=== PATIENT | male | born 1970 | race Caucasian/White ===

== ENCOUNTER → 2018-07-27 10:56 | Outpatient (CLI) | payer OTHER, SELFPAY ==
--- NOTE | 2018-07-27 10:59 | RAD_ITS ---
STUDY: X-RAY CHEST REASON FOR EXAM: Male, 48 years old. Sarcoidosis. TECHNIQUE: PA and lateral views of the chest. COMPARISON: June 03, 2017 FINDINGS: There is no new focal consolidation. Normal size heart. Stable mediastinum and kerry. Normal visualized pulmonary arteries. Normal visualized aortic arch and descending thoracic aorta. Normal visualized thoracic spine. Normal visualized ribs, clavicles, and shoulders. There is no demonstrated abnormality of the visualized soft tissue structures of the upper abdomen. RAD/Chest PA and Lateral IMPRESSION: No acute cardiopulmonary process. Electronically Signed: Amelia Camarillo MD at 20:52 EST Tel , Service support ,
== END ==
PROVIDERS: Family Provider Family Medicine; PCP Family Medicine; Referring Provider Family Medicine; Visit Provider Family Medicine
DX: D86.9 Sarcoidosis, unspecified (principal)
CPT/HCPCS: 71046

== ENCOUNTER → 2018-07-31 12:35 | Outpatient (CLI) | payer OTHER, SELFPAY ==
--- NOTE | 2018-08-01 08:24 | PFTCOMP ---
COMPLETE PULMONARY FUNCTION TEST INTERPRETATION Brief HPI: Patient is a 48 year old male, currently under the care of Dr. York, who presents to [facility] for complete pulmonary function tests secondary to diagnosis of sarcoidosis. Respiratory therapist reports good effort and reproducible results. Interpretation: Forced expiration spirometry shows no large airways obstructive ventilatory defect with an FEV1 of 96% predicted. There is no significant bronchodilator response by strict ATS criteria. Spirograms are of good quality and plateau normally. The respiratory flow volume loop shows a normal pattern. Lung volumes by body plethysmography show a normal total lung capacity at 6.63 L, 93% predicted. All other lung volumes are within normal limits. Diffusion capacity by carbon monoxide is normal at 96% predicted. The airway resistance is normal. Compared to previous pulmonary function tests from 03/04/2012, there has been no significant change in spirometry, but lung volumes are not available for comparison. Impression: These pulmonary function tests are within normal limits and there does not appear to be significant change in spirometry compared to 2012.
== END ==
PROVIDERS: Family Provider Family Medicine; PCP Family Medicine; Referring Provider Family Medicine; Visit Provider Family Medicine
DX: D86.9 Sarcoidosis, unspecified (principal)
CPT/HCPCS: 94060; 94726; 94729

== ENCOUNTER → 2018-08-31 11:54 | Outpatient (CLI) | payer OTHER, SELFPAY ==
[2018-08-13 15:06] VITALS: BMI 29.9
--- NOTE | 2018-08-31 18:23 | STRESSREP ---
Stress Test Report Exercise stress test. 48-year-old male with a history of chest pain. Stress protocol: Resting EKG demonstrates normal sinus rhythm with a rate of 66 bpm normal intervals are noted resting blood pressure 128/84 mmHg. The patient exercised according to regular Steven protocol for total duration of 11 minutes completing 2 minutes into stage IV of the Steven protocol. The maximum heart rate attained was 162 bpm which was 93% of maximum predicted heart rate the maximum workload was 13.4 metabolic equivalents. At rest there were no ST or T wave changes noted suggest ischemia peak exercise upsloping ST changes were only were noted with normally the criteria for ischemia. No clinical angina was noted. The test was terminated due to leg fatigue. Resting blood pressure 128/84 with a peak blood pressure 170/90. Conclusion: Exercise stress test with no EKG criteria for ischemia at a high workload. No clinical angina noted. No arrhythmias noted.
== END ==
PROVIDERS: Family Provider Family Medicine; PCP Family Medicine; Referring Provider Family Medicine; Visit Provider Family Medicine
DX: R07.89 Other chest pain (principal)
CPT/HCPCS: 93017

== ENCOUNTER → 2018-09-03 13:22 | Outpatient (CLI) | payer OTHER, SELFPAY ==
[2018-08-13 15:06] VITALS: BMI 29.9
[2018-09-03 14:15] LABS: Erythrocyte Sedimentation Rate < 1 mm/hr (0-15)
[2018-09-03 14:55] LABS: AST(SGOT) 18 U/L (15-37); Alanine Aminotransfer ALT/SGPT 39 U/L (16-61); Albumin, Serum 4.3 g/dL (3.2-5.0); Alkaline Phosphatase 70 U/L (45-117); Bilirubin, Direct 0.12 mg/dL (0.00-0.30); Calcium,Total 8.9 mg/dL (8.5-10.1); Globulin 2.6 g/dL (2.2-4.2); Protein, Total 6.9 g/dL (6.4-8.2)
[2018-09-05 13:03] LABS: Angiotensin Convert Enzyme 43 U/L (14-82)
== END ==
PROVIDERS: Family Provider Family Medicine; PCP Family Medicine; Referring Provider Internal Medicine Pulmonary Disease; Visit Provider Internal Medicine Pulmonary Disease
DX: D86.9 Sarcoidosis, unspecified (principal)
CPT/HCPCS: 36415; 80076; 82164; 82310; 85652

== ENCOUNTER 2019-03-24 07:34 | Day surgery (SDC) | payer OTHER, SELFPAY ==
[2019-02-23 08:48] VITALS: BMI 29.9
--- NOTE | 2019-02-23 08:54 | HP_ITS ---
Intake Vital Signs 02/23/19 Body Mass Index (BMI) 29.9 02/23/19 Height 6 ft 02/23/19 Weight: 226 lb 02/23/19 Body Mass Index (BMI) 30.6 02/23/19 Blood Pressure 106/75 02/23/19 Blood Pressure Location Rt brachial 02/23/19 Respiratory Rate 14 02/23/19 Pulse Rate 81 02/23/19 Pulse Source Monitor 02/23/19 Temperature 98.2 F 02/23/19 Pulse Ox 97 02/23/19 Oxygen Delivery Method room air Intake Visit Reasons: C-Scope Consult Positive occult stool blood test Medical Territory Manager Required: No Is patient in pain?: No Allergies Penicillins Allergy (Verified 02/23/19 08:47) Unknown Medications escitalopram 10 mg tablet 10 mg PO DAILY 08/13/18 [History Confirmed 02/23/19] inhaler,assist devices,access MISCELLANEOUS 02/23/19 [History Confirmed 02/23/19] [facility] Medical History Asthma (Acute) Sleep apnea (Acute) Depression (Acute) Difficulty balancing (Acute) Sarcoidosis (Acute) Knee pain (Acute) Chest pain (Acute) Migraines (Acute) Fatigue (Acute) SOB (shortness of breath) (Acute) Fever (Acute) Lung disease (Acute) Surgical History History of biopsy (Acute) Family History Father Asthma Diabetes Heart disease Hypertension Other Cancer Social History (Updated 02/23/19 @ 09:00 by Anurag Lyman MD) Smoking Status: Never smoker alcohol intake: current alcohol intake frequency: a few times a week Alcohol type: hard liquor substance use type: does not use caffeine: Yes frequency: does not exercise HPI HPI HPI: NAHED STEVENS, is a 49 M who presents to the office today for HPI HPI Surgical H&P: Yes HPI: NAHED STEVENS, is a 49 M who presents to the office today for evaluation of heme positive stools. Patient has not noticed any black tarry stools nor has he noticed any blood in his stools. Patient has been complaining of increasing chest pains. And difficulty breathing which she states really is not uncommon for him. However the symptoms have increased in nature similar to when he was diagnosed with sarcoidosis in the past. His symptoms have been increasing over the last 6 months. Since my initial meeting with him he has seen Dr. Munoz and has been put on to inhalers and is feeling much better. And we are not going to get him scheduled for his colonoscopy. ROS General General: Yes fatigue; no weight change, appetite, colon cancer, breast cancer or weakness HEENT HEENT: No difficulty swallowing, eye injury, eye surgery, swollen glands or hoarseness Endo Endocrine: No thyroid disease, diabetes mellitus, thyroid cancer, Hair loss, heat intolerance or cold intolerance Skin Skin: No rash or changing moles Musc Musculoskeletal: Yes back problems; no arthritis, rheumatoid arthritis, gout or joint pain Cardio Cardiovascular: No murmur, pacemaker, heart disease, atrial fibrillation, high blood pressure, heart attack, heart stent, palpitations, shortness of breat with exertion or chest pain Psych Psychiatric: Yes depression; no anxiety or hearing voices Resp Respiratory: Yes shortness of breath, Yes sleep apnea, Yes cough, No COPD, Yes asthma, No emphysema, No wheezing Gastro Gastrointestinal: No abdominal pain, No nausea or vomiting, No diarrhea, No constipation, No blood in stool, No acid reflux, No hemorrhoids, No ulcers, No gallbladder problem, No black,tarry stools Yuri Hematologic: No blood thinners, No blood disorders, No bleeding, No anemia, No blood clots Neuro Neurologic: No system reviewed and no additional complaints, except as docu, No as per HPI, No abnormal walking, No abnormal hearing, No abnormal movements, No abnormal speech, No behavioral changes, No burning sensations, No confusion, No seizure-like activity, No unsteadiness, No dizziness, No localized weakness, No frequent falls, No headache(s), No lack of coordination, No loss of vision, No memory loss, No numbness, No other visual disturbances, No radiating pain, No restless legs, No sensory deficit, No fainting, No tingling, No tremor(s), No weakness, No other Exam Const General: no acute distress, well developed, well hydrated Orientation: oriented to person, oriented to place, oriented to time [facility] Head: normocephalic, atraumatic Ears: external ears normal Mouth: moist mucous membranes Eyes Sclera: sclerae normal Pupils: normal by confrontation Neck Neck: no lymphadenopathy noted Neck mass: No Thyroid: thyroid normal, symmetrical Chest Chest palpation & inspection: normal inspection of the chest Resp Effort & Inspection: normal respiratory effort Auscultation: clear to auscultation bilaterally Percussion: percussion normal Cardio Rate: regular rate Rhythm: regular rhythm Heart Sounds: no murmurs GI Palpation: soft, no hepatosplenomegaly, no masses, nontender Rectal Exam: other Other: Rectal exam deferred. Extrem General: normal to inspection, no clubbing, cyanosis or edema Assessment & Plan Problems 1. Heme + stool R19.5 Plan I have discussed the above with the patient. I have offered the patient colonoscopy for evaluation. I have explained the risks/benefits of the procedure and described the procedure. I have discussed the risks with the patient, including but not limited to: infection, bleeding, perforation of the GI tract requiring emergency surgery, inability to complete the procedure, injury to any internal organs, complications of anesthesia, etc. - the patient understands and agrees to proceed. I have answered all the patient's questions to the patient's satisfaction and the patient has no further questions. The patient has been given instructions for the colon cleansing preparation. Coding Level of Care Code Off vis,est,level 3 Diagnoses Heme + stool R19.5 02/23/19 0900 <Electronically signed by Anurga flores MD> Date _ Anurag Lyman MD I have re-examined the patient. There are no clinical changes since date of exam.
--- NOTE | 2019-03-24 | COLBX_PTH ---
PATIENT: NAHED STEVENS LOC: EN U#:[id number] AGE/SX: 49/M ROOM: RE03/24/[address]: Dr. Anurag Lyman MD : 1970 BED: DIS: 03/24/2019 SPEC #: [id number] RECD: 03/24/19 13:34 STATUS: JENN CRISTINA #: [id number] HELENE: 03/24/19 00:[address]: Anurag Lyman DEPT: SURGICAL PATHOLOGY RECD BY: Paulino Lambert ENTERED: 03/24/19 13:34 SP TYPE: COLON BX OTHR DR: Dr. Sanjay York MD Tissues: Descending colon Procedures: Surgery Specimen Level IV HEADER OPERATION: Colonoscopy PRE-OP DIAGNOSIS: Heme-positive stools TISSUE SUBMITTED: Descending colon polyp MICROSCOPIC DIAGNOSIS Descending colon polyp, biopsy: Consistent with inflammatory polyp. SJ:ruth 03/25/19 MICROSCOPIC DESCRIPTION Slides are reviewed. GROSS DESCRIPTION Received in fixative is one container labeled with the patient's name and designated descending colon polyp. The specimen consists of a medina-pink polyp measuring 1 x 1 x 0.7 cm. The apparent base is inked. The specimen is bisected and submitted entirely in one cassette. / SJ:ruth 03/24/19 TC:5 CPT: 47850
[2019-03-24 07:48] VITALS: BP 133/100; PULSE 78; RESP 16; TEMP 36.4; O2SAT 98; BMI 28.8
[2019-03-24] MEDS: Lactated Ringers 1,000 ML 75 ML IV (08:08)
[2019-03-24 09:28] VITALS: BP 122/89; BP 133/100; PULSE 74; RESP 16; TEMP 36.1; O2SAT 96
[2019-03-24 09:30] VITALS: BP 110/93; BP 133/100; PULSE 75; RESP 16; O2SAT 95
[2019-03-24 09:35] VITALS: BP 128/100; BP 133/100; PULSE 73; RESP 16; O2SAT 97
[2019-03-24 09:40] VITALS: BP 128/91; BP 133/100; PULSE 66; RESP 16; O2SAT 98
[2019-03-24 09:55] VITALS: BP 133/100
--- NOTE | 2019-03-24 16:45 | OP.ENDO_ITS ---
03/25/2019 Black York [address] [place] [address] Re : Colonoscopy procedure for Javi Gifford Dear Dr. York This procedure was performed on Sunday, March 24, 2019. My impressions and recommendations are as follows: Impressions : - One 20 mm polyp in the descending colon, removed with a hot snare. Resected and retrieved. - The examination was otherwise normal. Recommendations : - Discharge patient to home. - Resume previous diet. - Continue present medications. - Await pathology results. - Repeat colonoscopy in 3 years for surveillance. - Return to my office in 1 week. My findings are described in the full procedure note, which is enclosed. If I can be of further assistance, please feel free to contact me at Doctor phone number(s): , Fax: [phone], Work: . Sincerely, MD Anurag Snyder MD 03/24/2019 9:28:43 AM This report has been signed electronically.
== END 2019-03-24 10:15 | disposition home or self-care (01) ==
LOC: EN 07:34 → AC 07:35
PROVIDERS: Family Provider Family Medicine; PCP Family Medicine; Referring Provider Family Medicine; Visit Provider Surgery
PROC: 0DJD8ZZ Inspection of Lower Intestinal Tract, Via Natural or Artificial Opening Endoscopic (ICD-10-PCS; CPT 45378; principal; 2019-03-24 08:40)
DX: D12.4 Benign neoplasm of descending colon (principal); R19.5 Other fecal abnormalities; D86.9 Sarcoidosis, unspecified; G25.81 Restless legs syndrome; R07.9 Chest pain, unspecified; J45.909 Unspecified asthma, uncomplicated; G47.30 Sleep apnea, unspecified; F32.9 Major depressive disorder, single episode, unspecified; Z88.0 Allergy status to penicillin; Z79.899 Other long term (current) drug therapy
CPT/HCPCS: 45385; 88305; J7120; J2405

== ENCOUNTER → 2019-11-30 10:40 | Outpatient (CLI) | payer OTHER, SELFPAY ==
[2019-09-13 07:46] VITALS: BMI 28.8
--- NOTE | 2019-11-30 10:53 | RAD_ITS ---
STUDY: X-RAY CHEST REASON FOR EXAM: Male, 49 years old. Chest pain. TECHNIQUE: PA and lateral views of the chest. COMPARISON: Comparison is made with prior study dated July 27, 2018. FINDINGS: The lungs are clear and expanded. Scattered calcified granulomas. There is no demonstrated pleural abnormality. Normal size heart. Normal mediastinum and kerry. Normal visualized pulmonary arteries. Normal visualized aortic arch and descending thoracic aorta. Normal visualized thoracic spine. Normal visualized ribs, clavicles, and shoulders. There is no demonstrated abnormality of the visualized soft tissue structures of the upper abdomen. RAD/Chest PA and Lateral IMPRESSION: Normal x-ray examination of the chest. Electronically Signed: Dylan Lobo, at 15:49 EDT , Service support ,
[2019-11-30 12:31] LABS: Erythrocyte Sedimentation Rate 4 mm/hr (0-15)
[2019-11-30 12:33] LABS: Absolute Lymphocyte Count 1.38 X10^3/uL (0.83-4.51); Basophil# 0.03 X10^3/uL; Basophil% 0.5 % (0-1); Eosinophil# 0.05 X10^3/uL; Eosinophils% 0.9 % (0-5); Hematocrit 46.5 % (40-54); Hemoglobin 15.6 g/dL (13.0-16.5); Lymphocyte # 1.38 X10^3/ul (4.0); Lymphocyte % 23.5 % (19-41); Mean Corp Hgb Conc 33.5 g/dL (32-36); Mean Corpuscular Hgb 28.3 pg (27.0-32.0); Mean Corpuscular Volume 84.4 fL (80-94); Mean Platelet Vol. 10.9 fl (6.2-12.0); Monocyte# 0.41 X10^3/uL; NRBC Flagged by Analyzer 0 % (0-5); Neutrophil # 3.96 X10^3/uL (2.7-7.7); Neutrophil % 67.6 % (47-70); Platelet Count 203 K/mm3 (150-450); RBC Distribution Width CV 12.4 % (11.6-14.6); Red Blood Count 5.51 M/mm3 (4.6-6.2); White Blood Count 5.9 K/mm3 (4.4-11.0)
[2019-11-30 12:53] LABS: Vitamin B12 491 pg/mL (211-911); Vitamin D,25 Hydroxy 28.1 ng/mL
[2019-11-30 13:03] LABS: ALB/GLOB Ratio 1.5 RATIO (0.9-2.4); AST(SGOT) 23 U/L (15-37); Alanine Aminotransfer ALT/SGPT 48 U/L (16-61); Alkaline Phosphatase 79 U/L (45-117); Anion Gap 9 (5-15); BUN 15 mg/dL (7-18); BUN/Creat Ratio 17.7 RATIO (10-20); Calcium,Total 8.9 mg/dL (8.5-10.1); Chloride 105 mmol/L (98-107); Creatinine, Serum 0.85 mg/dL (0.70-1.30); EST Glomerular Filtration Rate 103 mL/min (>60); Est Glom Filt Rate - Afr Amer 124 mL/min (>60); Globulin 2.6 g/dL (2.2-4.2); Glucose 95 mg/dL (74-106); Iron 101 ug/dL (65-175); Potassium 3.7 mmol/L (3.5-5.1); Protein, Total 6.6 g/dL (6.4-8.2); Sodium Level 138 mmol/L (136-145); Thyroid Stim Hormone (TSH) 1.28 uIU/mL (0.358-3.74)
== END ==
PROVIDERS: PCP Family Medicine; Referring Provider Family Medicine; Visit Provider Family Medicine
DX: R53.83 Other fatigue (principal); D86.9 Sarcoidosis, unspecified
CPT/HCPCS: 36415; 71046; 80053; 82306; 82607; 83540; 84403; 84443; 85025; 85652

== ENCOUNTER → 2020-02-23 15:06 | Outpatient (CLI) | payer OTHER, SELFPAY ==
[2019-09-13 07:46] VITALS: BMI 28.8
[2020-02-23 18:00] LABS: CRP 5.27 mg/L (0.0-3.0)
[2020-02-23 18:29] LABS: Erythrocyte Sedimentation Rate 1 mm/hr (0-15)
[2020-02-25 20:12] LABS: Angiotensin Convert Enzyme 31 U/L (14-82)
== END ==
PROVIDERS: Referring Provider Internal Medicine Pulmonary Disease; Visit Provider Internal Medicine Pulmonary Disease
DX: D86.9 Sarcoidosis, unspecified (principal)
CPT/HCPCS: 36415; 82164; 85652; 86140

== ENCOUNTER → 2020-03-30 | Outpatient (CLI) | payer OTHER, SELFPAY ==
[2019-09-13 07:46] VITALS: BMI 28.8
== END | disposition home or self-care (01) ==
PROVIDERS: Referring Provider Family Medicine; Visit Provider Family Medicine
DX: Z20.828 Contact with and (suspected) exposure to other viral communicable diseases (principal)
CPT/HCPCS: 87635; U0003

== ENCOUNTER → 2020-09-27 14:01 | Outpatient (CLI) | payer OTHER, SELFPAY ==
--- NOTE | 2020-09-27 14:04 | RAD_ITS ---
STUDY: X-RAY CHEST REASON FOR EXAM: Male, 50 years old. CHEST PAIN TECHNIQUE: PA and lateral views of the chest. COMPARISON: Comparison is made with prior study dated 11/30/2019. FINDINGS: The lungs are clear and expanded. Scattered calcified granulomas. There is no demonstrated pleural abnormality. Normal size heart. Normal mediastinum and kerry. Normal visualized pulmonary arteries. Normal visualized aortic arch and descending thoracic aorta. Normal visualized thoracic spine. Normal visualized ribs, clavicles, and shoulders. There is no demonstrated abnormality of the visualized soft tissue structures of the upper abdomen. RAD/Chest PA and Lateral IMPRESSION: Normal x-ray examination of the chest. Electronically Signed: Dylan Lobo MD at 15:18 EST , Service support ,
[2020-09-27 15:14] LABS: Erythrocyte Sedimentation Rate 1 mm/hr (0-20)
[2020-09-27 15:16] LABS: Absolute Lymphocyte Count 1.41 X10^3/uL (0.83-4.51); Absolute Neutrophil Count 4.3 X10^3/uL (2.0-7.7); Basophil# 0.03 X10^3/uL; Basophil% 0.5 % (0-1); Eosinophil# 0.05 X10^3/uL; Eosinophils% 0.8 % (0-5); Hematocrit 45.9 % (40-54); Hemoglobin 15.7 g/dL (13.0-16.5); Lymphocyte # 1.41 X10^3/ul (4.0); Lymphocyte % 22.4 % (19-41); Mean Corp Hgb Conc 34.2 g/dL (32-36); Mean Corpuscular Hgb 28.8 pg (27.0-32.0); Mean Corpuscular Volume 84.2 fL (80-94); Mean Platelet Vol. 11.1 fl (6.2-12.0); Monocyte# 0.46 X10^3/uL; Monocyte% 7.3 % (0-10); NRBC Flagged by Analyzer 0 % (0-5); Neutrophil % 68.4 % (47-70); Platelet Count 207 K/mm3 (150-450); RBC Distribution Width CV 12.2 % (11.6-14.6); RBC Distribution Width SD 36.7 fl (35.1-43.9); Red Blood Count 5.45 M/mm3 (4.6-6.2); White Blood Count 6.3 K/mm3 (4.4-11.0)
[2020-09-27 16:02] LABS: Vitamin B12 525 pg/mL (211-911)
[2020-09-27 16:15] LABS: ALB/GLOB Ratio 1.6 RATIO (0.9-2.4); AST(SGOT) 16 U/L (15-37); Alanine Aminotransfer ALT/SGPT 40 U/L (16-61); Albumin, Serum 4.1 g/dL (3.2-5.0); Alkaline Phosphatase 83 U/L (45-117); Anion Gap 8 (5-15); BUN 17 mg/dL (7-18); BUN/Creat Ratio 19.9 RATIO (10-20); Calcium,Total 8.9 mg/dL (8.5-10.1); Chloride 107 mmol/L (98-107); Creatinine, Serum 0.85 mg/dL (0.70-1.30); EST Glomerular Filtration Rate 101 mL/min (>60); Est Glom Filt Rate - Afr Amer 123 mL/min (>60); Globulin 2.5 g/dL (2.2-4.2); Glucose 111 mg/dL (74-106); Protein, Total 6.6 g/dL (6.4-8.2); Sodium Level 140 mmol/L (136-145); Thyroid Stim Hormone (TSH) 1.77 uIU/mL (0.358-3.74)
== END ==
PROVIDERS: PCP Family Medicine; Referring Provider Family Medicine; Visit Provider Family Medicine
DX: R07.9 Chest pain, unspecified (principal); R53.83 Other fatigue; D86.9 Sarcoidosis, unspecified
CPT/HCPCS: 36415; 71046; 80053; 82306; 82607; 84403; 84443; 85025; 85652

== ENCOUNTER → 2021-01-24 11:52 | Outpatient (CLI) | payer OTHER, SELFPAY ==
--- NOTE | 2021-01-24 11:55 | RAD_ITS ---
STUDY: X-RAY - RIGHT FOOT CLINICAL: Right foot/ankle pain. TECHNIQUE: 3 view(s) of the foot. COMPARISON: None. FINDINGS: There is a posterior calcaneal enthesophyte. Otherwise, unremarkable talus, calcaneus, and tarsal bones. Normal visualized subtalar, talonavicular, calcaneocuboid, tarsal and tarsometatarsal articulations. Normal metatarsi. Normal metatarsophalangeal joint of the great toe. Normal tibial and fibular sesamoid bones. Normal interphalangeal joint of the great toe. Normal phalanges of the great toe. Normal second through fifth metatarsophalangeal joints. Normal interphalangeal joints and phalanges of the lesser toes. The soft tissue structures are unremarkable. RAD/Foot min 3 Views IMPRESSION: Posterior calcaneal enthesophyte. Otherwise, unremarkable x-ray examination of the right foot. Electronically Signed: Donta Smith MD at 12:11 EDT Tel , Service support ,
--- NOTE | 2021-01-24 11:55 | RAD_ITS ---
STUDY: X-RAY - RIGHT ANKLE REASON FOR EXAM: Right foot and ankle pain. TECHNIQUE: 3 view(s) of the ankle. COMPARISON: None. FINDINGS: Normal visualized distal tibia and fibula. Normal medial and lateral malleoli. Normal tibiotalar articulation and ankle mortise. There is a posterior calcaneal enthesophyte. The visualized subtalar, talonavicular, calcaneocuboid and tarsal articulations are normal. The soft tissue structures are unremarkable. RAD/Ankle min 3 Views IMPRESSION: Posterior calcaneal enthesophyte. Otherwise, unremarkable x-ray examination of the right ankle. Electronically Signed: Donta Smith MD at 12:14 EDT Tel , Service support ,
== END ==
PROVIDERS: PCP Family Medicine; Referring Provider Family Medicine; Visit Provider Family Medicine
DX: M79.671 Pain in right foot (principal); M25.571 Pain in right ankle and joints of right foot
CPT/HCPCS: 73610; 73630

== ENCOUNTER 2021-10-29 13:12 | Outpatient (CLI) | payer OTHER, SELFPAY ==
[2021-10-29 15:37] LABS: CRP, High Sensitivity Cardiac 4.08 mg/L
[2021-10-29 15:39] LABS: Erythrocyte Sedimentation Rate 3 mm/hr (0-20)
[2021-10-31 18:48] LABS: Angiotensin Convert Enzyme 41 U/L (14-82)
== END 2021-10-29 23:59 | disposition home or self-care (01) ==
LOC: MTLAB 13:13
PROVIDERS: PCP Family Medicine; Referring Provider Internal Medicine Pulmonary Disease; Visit Provider Internal Medicine Pulmonary Disease
DX: D86.0 Sarcoidosis of lung (principal)
CPT/HCPCS: 36415; 82164; 85652; 86141

== ENCOUNTER 2021-11-05 15:35 | Outpatient (CLI) | payer OTHER, SELFPAY ==
--- NOTE | 2021-11-05 15:42 | CT_ITS ---
STUDY: CT CHEST WITHOUT CONTRAST REASON FOR EXAM: Male, 51 years old. SARCOIDOSIS OF LUNG RADIATION DOSAGE (If Supplied By Facility): CTDIvol = ( 19.23 ) mGy, DLP = ( 691.80 ) mGycm TECHNIQUE: Transaxial imaging was performed without the administration of intravenous contrast material. Individualized dose optimization techniques were used for this CT. COMPARISON: None. FINDINGS: The lungs are normal. There is no demonstrated pleural abnormality. Normal heart and pericardium. There are multiple small lymph nodes within the mediastinum, which are normal in size and morphology most compatible with reactive lymph hyperplasia. Normal hilar regions. Normal unenhanced pulmonary arteries. Normal aorta arch and descending thoracic aorta. There are mild degenerative changes of the thoracic spine. There is no demonstrated abnormality of the visualized upper abdomen. CT/Chest without Contrast IMPRESSION: Normal unenhanced CT Chest examination. Electronically Signed: Dylan Lobo MD at 9:56 EDT ,
== END 2021-11-05 23:59 | disposition home or self-care (01) ==
PROVIDERS: PCP Family Medicine; Referring Provider Internal Medicine Pulmonary Disease; Visit Provider Internal Medicine Pulmonary Disease
DX: D86.0 Sarcoidosis of lung (principal)
CPT/HCPCS: 71250

== ENCOUNTER 2021-11-06 07:44 | Inpatient (IN) | payer OTHER, SELFPAY ==
[2021-11-06] VITALS (15 sets, daily range): BP systolic 129–150; BP diastolic 77–101; PULSE 70–84; RESP 16–21; TEMP 36.3–36.8; O2SAT 95–98; BMI 32.7; BMI 31.1
--- NOTE | 2021-11-06 07:49 | EKG12_ITS ---
Test Reason : CP Blood Pressure : / mmHG Vent. Rate : 083 BPM Atrial Rate : 083 BPM P-R Int : 156 ms QRS Dur : 092 ms QT Int : 378 ms P-R-T Axes : 042 -13 012 degrees QTc Int : 444 ms Normal sinus rhythm Normal ECG Confirmed by ASHLEE DAS MD ([id number]), manager editorial EMILY MALLOY ([id number]) on 11/07/2021 2:15:05 PM Referred By: JONI Confirmed By:ASHLEE DAS MD
--- NOTE | 2021-11-06 07:56 | EDS_ITS ---
HPI History of Present Illness Chief Complaint: Chest Pain Narrative Narrative: 51-year-old male presenting with chest pain. He states that he does have chronic chest pain due to sarcoidosis and scar tissue in the center of his chest. He has been seeing his primary care physician because he has been having issues with this recently. He had a CAT scan done yesterday of his chest without contrast which was not read yet. Patient reports that this morning after drinking orange juice he started to have a burning/pressure type pain in the chest that radiated into the left upper extremity. He states he felt lightheaded when this occurred. He was not diaphoretic. He is not short of breath. No history of DVT/PE, recent bedrest or immobilization, history of cancer in him, exogenous hormones, calf pain or swelling, no recent surgery. Patient denies history of cardiac disease. He has not had fever, chills, cough. He does not have nausea or vomiting. He reports that he was given 2 nitroglycerin via EMS and his chest pain improved from an 8 to a 5 and now it is improved all the way. He states he still feels achiness in his left arm. [facility] Medical History Asthma Chest pain Depression Difficulty balancing Fatigue Fever Knee pain Lung disease Migraines Sarcoidosis Sleep apnea SOB (shortness of breath) Home Medications escitalopram oxalate 10 mg tablet 20 mg PO DAILY 08/13/18 [History Last Taken Unknown] fluticasone furoate 1 puff IH DAILY 03/22/19 [History Last Taken Unknown] albuterol 90 mcg INHALATION Q4H PRN PRN 11/06/21 [History Last Taken Unknown] bupropion HCl 150 mg PO DAILY 11/06/21 [History Last Taken Unknown] Allergy/AdvReac Type Severity Reaction Status Date / Time Penicillins Allergy Unknown Verified 11/06/21 07:49 Family History Father Asthma Diabetes Heart disease Hypertension Other Cancer Surgical History History of biopsy History of colonoscopy (~03/24/19) Social History Smoking Status: Never smoker alcohol intake: current alcohol intake frequency: a few times a week Alcohol type: hard liquor substance use type: does not use caffeine: Yes frequency: does not exercise ROS ROS ED Constitutional Constitutional ED: Denies chills, fever(s) or sweats Eyes Eyes: Reports blurry vision bilateral (During episode of lightheadedness) ENT ENT ED: Denies rhinorrhea or sore throat Cardiovascular Cardiovascular: Reports as per HPI Respiratory/Chest Respiratory/Chest: Denies cough, dyspnea or dyspnea on exertion Gastrointestinal Gastrointestinal: Denies abdominal pain, nausea or vomiting Genitourinary Genitourinary ED: Denies dysuria or hematuria Musculoskeletal Musculoskeletal: Denies myalgias Integumentary Denies abscess, Abrasions or rash Neurologic Neurologic: Reports headache(s) and other Details: Reports headache after having nitroglycerin ; Denies paresthesias or weakness Psychiatric Psychiatric: Denies anxiety or depression EXAM Physical Exam Const Vital Signs: 11/06/21 07:45 11/06/21 07:51 11/06/21 08:45 Temperature 97.5 F L Temperature Source Oral Pulse Rate 84 76 Respiratory Rate 16 19 H Respiratory Effort Blood Pressure 130/77 H 132/91 H Blood Pressure Mean 94 104 Pulse Ox 96 95 Oxygen Delivery Method Room Air Room Air Room Air 11/06/21 08:52 11/06/21 09:00 11/06/21 10:00 Temperature Temperature Source Pulse Rate 77 72 Respiratory Rate 16 21 H Respiratory Effort Normal Non-Labored Blood Pressure 138/88 H 140/94 H Blood Pressure Mean 104 109 Pulse Ox 97 97 Oxygen Delivery Method Room Air Room Air Positive well nourished General Appearance ED: NAD; Negative for pallor HEENT Reports moist mucous membranes normocephalic Eyes PERRL and EOMs intact bilaterally General Eye ED: Negative for pale conjunctiva or scleral icterus Neck no lymphadenopathy and supple Chest Wall inspection of chest normal Resp normal respiratory effort and clear to auscultation bilaterally Cardio regular rate and regular rhythm GI normal to inspection, nondistended, normoactive bowel sounds Back/Spine no CVA tenderness Neuro oriented x3 Sensorium / Orientation: awake and alert Psych mental status grossly normal Skin General Skin Exam: Negative for jaundice or pallor Heart Score History: Slightly/Non-Suspicious ECG: Normal Age: >45 - <65 years Risk Factors: No Risk Factors Troponin: </= Normal Limit Score: 1 MDM MDM MDM Narrative Medical decision making narrative: Patient presenting with chest pain with radiation to the left upper extremity earlier prior to arrival. He states this lasted about an hour. He felt lightheaded and had blurry vision while he was lightheaded. He states that after EMS gave him nitroglycerin his chest pain improved and now is down to 0. He has no other associated symptoms. Heart score of 1 pretesting. EKG on my interpretation shows normal sinus rhythm with ventricular rate of 83 bpm without sign of ischemic change. Patient PERC negat mariana. Patient had a CAT scan of his chest done yesterday without contrast which I will have read as stat. I do not suspect PE. Chest x-ray on my interpretation shows no acute cardiopulmonary process and radiologist agree. CT was read of the chest and is negative for acute findings. I did review the patient's previous lab work and it looks like he did have abnormal cholesterol levels last year. He states he is not on medication for this. This does add some risk. Patient's initial heart score was 3 and the delta troponin is 45 therefore he rules and and will need to be hospitalized. Patient was discussed with Dr. White and he agreed. CBC and BMP otherwise unremarkable. Patient received aspirin via EMS prior to arrival. Impression: 1. Chest pain Lab Data Attestation: I reviewed the patient's lab results. Labs: Laboratory Results - last 24 hr 11/06/21 11/06/21 11/06/21 07:30 07:30 09:35 WBC 6.2 RBC 5.53 Hgb 16.0 Hct 46.2 MCV 83.5 MCH 28.9 MCHC 34.6 RDW Std Deviation 37.2 RDW Coeff of Jose 12.2 Plt Count 169 MPV 10.7 Immature Gran % (Auto) 0.600 Neut % (Auto) 68.3 Lymph % (Auto) 21.9 Candler % (Auto) 8.2 Eos % (Auto) 0.8 Baso % (Auto) 0.2 Absolute Neuts (auto) 4.2 Absolute Lymphs (auto) 1.36 Nucleated RBC % 0 Sodium 139 Potassium 4.1 Chloride 108 H Carbon Dioxide 27.0 Anion Gap 4 L BUN 17 Creatinine 0.77 Estim Creat Clear Calc 123.60 Est GFR (MDRD) Af Amer 137 Est GFR (MDRD) Non-Af 113 BUN/Creatinine Ratio 22.0 H Glucose 116 H Calcium 8.7 Troponin I High Sens 3 45 Radiography Diagnostic Testing: Clinical Impression(s) from Imaging Studies Chest X-Ray 11/06/21 08:11 IMPRESSION: Normal x-ray examination of the chest. Electronically Signed: Dylan Lobo MD at 9:01 EDT Reading Location ID and State: [facility] / [place] , Service support , Discharge Plan Triage Chief Complaint: Chest Pain ED Provider: Charles Hughes Dx/Rx/DC Orders Prescriptions: No Action escitalopram oxalate [Lexapro] 10 mg tablet 20 mg PO DAILY RF: 0 fluticasone furoate 100 MCG blister with device 1 puff IH DAILY RF: 0 bupropion HCl 150 mg Tablet Sustained-Release 12 Hr 150 mg PO DAILY RF: 0 albuterol 90 mcg/actuation Aerosol 90 mcg INHALATION Q4H PRN PRN (Reason: sob) RF: 0 Primary Care Provider: Black York
[2021-11-06 08:02] LABS: Absolute Lymphocyte Count 1.36 X10^3/uL (0.83-4.51); Absolute Neutrophil Count 4.2 X10^3/uL (2.0-7.7); Basophil# 0.01 X10^3/uL; Basophil% 0.2 % (0-1); Eosinophil# 0.05 X10^3/uL; Eosinophils% 0.8 % (0-5); Hematocrit 46.2 % (40-54); Lymphocyte # 1.36 X10^3/ul (0.83-4.51); Lymphocyte % 21.9 % (19-41); Mean Corp Hgb Conc 34.6 g/dL (32-36); Mean Corpuscular Hgb 28.9 pg (27.0-32.0); Mean Corpuscular Volume 83.5 fL (80-94); Mean Platelet Vol. 10.7 fl (6.2-12.0); Monocyte# 0.51 X10^3/uL; Monocyte% 8.2 % (0-10); NRBC Flagged by Analyzer 0 % (0-5); Neutrophil # 4.24 X10^3/uL (2.7-7.7); Neutrophil % 68.3 % (47-70); Platelet Count 169 K/mm3 (150-450); RBC Distribution Width CV 12.2 % (11.6-14.6); RBC Distribution Width SD 37.2 fl (35.1-43.9); Red Blood Count 5.53 M/mm3 (4.6-6.2); White Blood Count 6.2 K/mm3 (4.4-11.0)
--- NOTE | 2021-11-06 08:11 | RAD_ITS ---
STUDY: X-RAY CHEST REASON FOR EXAM: Male, 51 years old. Chest pain TECHNIQUE: Single AP portable view of the chest. COMPARISON: Comparison is made with prior examination dated 09/27/2020. FINDINGS: EKG electrodes are seen. The lungs are clear and expanded. There is no demonstrated pleural abnormality. Normal size heart. Normal mediastinum and kerry. Normal visualized pulmonary arteries. Normal visualized aortic arch and descending thoracic aorta. Normal visualized thoracic spine. Normal visualized ribs, clavicles, and shoulders. There is no demonstrated abnormality of the visualized soft tissue structures of the upper abdomen. RAD/Chest 1 View (Portable) IMPRESSION: Normal x-ray examination of the chest. Electronically Signed: Dylan Lobo MD at 9:01 EDT ,
[2021-11-06 08:20] LABS: Anion Gap 4 (5-15); BUN 17 mg/dL (7-18); Calcium,Total 8.7 mg/dL (8.5-10.1); Chloride 108 mmol/L (98-107); Creatinine, Serum 0.77 mg/dL (0.70-1.30); EST Glomerular Filtration Rate 113 mL/min (>60); Est Glom Filt Rate - Afr Amer 137 mL/min (>60); Glucose 116 mg/dL (74-106); Potassium 4.1 mmol/L (3.5-5.1); Sodium Level 139 mmol/L (136-145); Troponin-I HS (w/2H Reflex) 3 pg/mL (3.0-78.0)
[2021-11-06 09:59] LABS: Reflex Troponin-HS? (from REC) Y
[2021-11-06 10:22] LABS: Troponin-I HS 45 pg/mL (3.0-78.0)
--- NOTE | 2021-11-06 11:36 | NURSING ---
DR CLEMENTE FOR DR WILBURN
--- NOTE | 2021-11-06 11:44 | NURSING ---
GLENDYU OBS HEIDI CLEMENTE
--- NOTE | 2021-11-06 12:23 | CM.ED ---
RN CM Assessment Introduced role of RN CM to patient.? Patient is alert, oriented and able?to participate in RN CM Assessment. ?Care providers, pharmacy, and demographics verified. Admit Dx: OBS for CP Re-Admit: No Barriers/Issues: None PCP: Sanjay York Specialists: Tomi Hayes Preferred Pharmacy: [facility] Insurance: [employer] Rx Benefit: Yes? LNOK: Carlota Gifford LW/HPOA: None, AD information provided with [employer] rack card. Aware can complete as an inpatient and outpatient. Living Arrangements:? Lives with in a 2SH, bedroom currently on upper pa as gnd level of home getting remodeled. No steps to enter home. ADL?s: Independent with ambulation and ADLs. 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 Transportation: Both patient and drive DME: None HHC: None SNF: None Goal: Home and no needs anticipated at this time. DC PLAN: Home and no anticipated needs identified at his time. F/u for any potential anticoagulation needs. KEMAR Holliday
--- NOTE | 2021-11-06 12:56 | ECHOCS_ITS ---
Reason For Study: CHEST PAINS Procedure This was a 2D Doppler, Color Flow transthoracic echocardiogram. The study was technically difficult. Contrast injection was performed. Exam performed portable in patient room. Left Ventricle Normal LV size. Mild concentric left ventricular hypertrophy. Left ventricular systolic function is normal. The estimated ejection fraction is 65 %. No evidence for diastolic dysfunction. No regional wall motion abnormalities noted. Right Ventricle Normal RV size. Normal systolic function. Atria Normal left atrium. Normal right atrium. No doppler evidence for ASD. Mitral Valve There is no mitral annular calcification. Normal mitral valve. Trivial mitral valve insufficiency. Tricuspid Valve Normal tricuspid valve. Trivial tricuspid valve insufficiency. Right ventricular systolic pressure estimated to be 34 mmHg. Aortic Valve Trisinus/trileaflet aortic valve. Normal aortic valve. Pulmonic Valve The pulmonic valve is not well visualized. Great Vessels Normal sized aortic root. Pericardium/Pleural No pericardial effusion. Medication Diluted definity 2ml given slow IV push to enhance endocardial definition. MMode/2D Measurements & Calculations LVIDd: 3.5 cm IVSd: 1.3 cm Ao root diam: 3.5 cm LVIDs: 2.6 cm LVPWd: 1.4 cm RVDd: 2.8 cm FS: 27.3 % LAV(MOD-bp): 41.8 ml LVAd ap4: 37.0 cm2 SV(MOD-sp4): 77.1 ml LAV(MOD-bp) Indexed: 18.5 ml/m2 LVLd ap4: 9.1 cm LAV(MOD-sp2): 41.9 ml EDV(MOD-sp4): 117.8 ml LAV(MOD-sp4): 37.4 ml EDV(sp4-el): 127.1 ml LVAs ap4: 18.8 cm2 LVLs ap4: 7.5 cm ESV(MOD-sp4): 40.8 ml ESV(sp4-el): 40.1 ml EF(MOD-sp4): 65.4 % EF(sp4-el): 68.5 % SV(sp4-el): 87.0 ml LA A4 area: 16.1 cm2 LA dimension(2D): 3.2 cm RA A4 area: 11.0 cm2 Doppler Measurements & Calculations MV E max alexander: 99.5 cm/sec Lat Peak E' Alexander: 10.6 cm/sec Med Peak E' Alexander: 8.9 cm/sec MV A max alexander: 85.8 cm/sec E/E' lat: 9.3 E/E' med: 11.2 MV E/A: 1.2 Ao V2 max: 172.3 cm/sec LV V1 max: 139.2 cm/sec PA V2 max: 97.3 cm/sec Ao max P.9 mmHg LV V1 max P.8 mmHg TR max alexander: 280.2 cm/sec TR max P.4 mmHg ECHO/Echo Complete W/ Contrast Interpretation Summary The study was technically difficult. Contrast injection was performed. Left ventricular systolic function is normal. The estimated ejection fraction is 65 %. Mild concentric left ventricular hypertrophy. Trivial mitral valve insufficiency. Trivial tricuspid valve insufficiency. Right ventricular systolic pressure estimated to be 34 mmHg. No evidence for diastolic dysfunction. Ordering Physician: Lolly^Delfin^^^ Referring Physician: Sanjay York MD Performed By: Radha Arnold RCS
[2021-11-06 14:17] LABS: Troponin-I HS 201 pg/mL (3.0-78.0)
--- NOTE | 2021-11-06 15:40 | CASEMGMT ---
According to the [employer] website, the following are in-network tertiary facilities: [facility], [place], [facility], [facility], [facility], and . Elkin DOMINGUEZ CM
--- NOTE | 2021-11-06 15:53 | HP.PCM.HOS_ITS ---
Documented by User: Néstor MOCTEZUMA 11/06/21 16:09 HPI - General General Date of Admission: 11/06/21 Date of Service: 11/06/21 Chief Complaint: Chest pain HPI Narrative NAHED STEVENS is a 51-year-old male who presents to the ED at [facility] on 11/06/2021 with a chief complaint of chest pain. Patient states that this morning he awoke and felt fine after eating breakfast he reports that he s tarted feeling a burning sensation with intense chest pressure that began in the midsternal region and radiated to the back and left arm. Patient does suffer from chronic chest pain, but reports that the sensation he felt this morning was much different. Patient also endorses shortness of breath, but reports that this is chronic for him due to his history of sarcoidosis. Patient reports that the pain has now resolved after administration of aspirin and nitroglycerin, but does report that the chest pain was about a 8 out of 10 when it was at its worse. Vital signs in the ED are stable and patient is currently satting 98% on room air. BP is elevated at 150/100. CBC and BMP are unremarkable. High- sensitivity troponin are 3, 45 and 201 respectively. EKG obtained in the ED was unremarkable for any ST or T wave abnormalities. Chest x-ray did not demonstrate any acute cardiopulmonary process. Patient will be admitted for evaluation management of NSTEMI. [facility] Medical History Asthma Chest pain Depression Difficulty balancing Fatigue Fever Knee pain Lung disease Migraines Sarcoidosis Sleep apnea SOB (shortness of breath) Home Medications escitalopram oxalate 10 mg tablet 20 mg PO DAILY 08/13/18 [History Last Taken Unknown] fluticasone furoate 1 puff IH DAILY 03/22/19 [History Last Taken Unknown] albuterol 90 mcg INHALATION Q4H PRN PRN 11/06/21 [History Last Taken Unknown] bupropion HCl 150 mg PO DAILY 11/06/21 [History Last Taken Unknown] Allergy/AdvReac Type Severity Reaction Status Date / Time Penicillins Allergy Unknown Verified 11/06/21 07:49 Family History (Updated 11/06/21 @ 16:01 by Néstor MOCTEZUMA) Father Asthma Diabetes Heart disease Hypertension Mother No problems noted. Other Cancer Surgical History History of biopsy History of colonoscopy (~03/24/19) Social History Smoking Status: Never smoker alcohol intake: current alcohol intake frequency: a few times a week Alcohol type: hard liquor substance use type: does not use caffeine: Yes frequency: does not exercise ROS Review of Systems ROS Unobtainable: Denies due to encephalopathy, due to endotracheal tube, due to mental condition, due to mental status or other Constitutional Constitutional: Reports weakness; Denies anorexia, change in weight, chills, fatigue, fever(s), malaise, night sweats or other Eyes Eyes: Denies blurry vision, change in eye color, change in vision, discharge from eye(s), double vision, erythema, eye pain, loss of vision or other ENT HEENT: Denies abnormal hearing, dysphagia, ear pain, epistaxis, headache(s), hearing loss, nasal congestion, nasal discharge, post nasal drip, sinus pressure, sore throat or other Cardiovascular Cardiovascular: Reports chest pain, dyspnea on exertion, lightheadedness and palpitations; Denies claudication, edema, orthopnea, paroxysmal nocturnal dyspnea, rapid heart rate, syncope or other Respiratory/Chest Respiratory/Chest: Reports dyspnea, shortness of breath at rest and shortness of breath with exertion; Denies cough, excessive phlegm production, hemoptysis, productive cough, wheezing or other Gastrointestinal Gastrointestinal: Denies abdominal pain, coffee ground emesis, constipation, diarrhea, dyspepsia, hematemesis, hematochezia, loose stools, melena, nausea, vomiting or other Genitourinary Genitourinary: Denies burning urination, difficulty urinating, dysuria, hematuria, nocturia, urinary frequency, urinary hesitancy, urinary incontinence, urinary urgency or other Musculoskeletal Musculoskeletal: Denies arthralgias, back pain, joint pain, joint stiffness, joint swelling, myalgias, neck pain or other Neurologic Neurologic: Denies abnormal gait, abnormal speech, confusion, disequilibrium, dizziness, focal weakness, headache(s), numbness, paresthesias, seizure-like activity, seizures, syncope, tingling, tremor(s) or other Psychiatric Psychiatric: Denies anxiety, depression, homicidal ideation, suicidal ideation or other Endocrine Endocrinology: Denies change in body appearance, cold intolerance, excessive sweating, heat intolerance, polydipsia, polyuria or other Hematologic/Lymphatic Hematologic/Lymphatic: Denies anemia, easy bleeding, easy bruising, l ymphadenopathy or other Allergic/Immunologic Allergic/Immunologic: Denies rhinitis, hives, eczemia, asthma or other Vital Signs Vital Signs Vital Signs: 11/06/21 07:45 11/06/21 07:51 11/06/21 08:45 Temperature 97.5 F L Temperature Source Oral Pulse Rate 84 76 Respiratory Rate 16 19 H Respiratory Effort Respiratory Depth Respiratory Pattern Blood Pressure 130/77 H 132/91 H Blood Pressure Mean 94 104 Blood Pressure Source Blood Pressure Position Blood Pressure Location Pulse Ox 96 95 Oxygen Delivery Method Room Air Room Air Room Air 11/06/21 08:52 11/06/21 09:00 11/06/21 10:00 Temperature Temperature Source Pulse Rate 77 72 Respiratory Rate 16 21 H Respiratory Effort Normal Non-Labored Respiratory Depth Respiratory Pattern Blood Pressure 138/88 H 140/94 H Blood Pressure Mean 104 109 Blood Pressure Source Blood Pressure Position Blood Pressure Location Pulse Ox 97 97 Oxygen Delivery Method Room Air Room Air 11/06/21 11:45 11/06/21 12:43 11/06/21 13:05 Temperature 97.3 F L 97.8 F Temperature Source Temporal Temporal Pulse Rate 75 76 76 Respiratory Rate 16 16 18 Respiratory Effort Respiratory Depth Respiratory Pattern Blood Pressure 143/92 H 137/90 H 150/100 H Blood Pressure Mean 109 105 116 Blood Pressure Source Monitor Blood Pressure Position Semi-Fowlers Blood Pressure Location Right Arm Pulse Ox 96 98 98 Oxygen Delivery Method Room Air Room Air Nasal Cannula 11/06/21 13:15 11/06/21 14:59 Temperature Temperature Source Pulse Rate 72 Respiratory Rate Respiratory Effort Normal Non-Labored Respiratory Depth Normal Respiratory Pattern Normal Blood Pressure Blood Pressure Mean Blood Pressure Source Blood Pressure Position Blood Pressure Location Pulse Ox Oxygen Delivery Method Room Air Weight Weight: 229 lb 8.019 oz Body Mass Index (BMI) 31.1 Physical Exam Const alert and oriented x3 General Appearance: cooperative HEENT normocephalic, head/scalp atraumatic and hearing grossly normal bilaterally Eyes PERRL, EOMs intact bilaterally and conjunctivae normal Neck no lymphadenopathy, supple and no JVD Resp normal respiratory effort, no retractions, no use of accessory muscles and clear to auscultation bilaterally Cardio regular rate, regular rhythm and no JVD GI normal to inspection, nondistended, normoactive bowel sounds Extremity normal to inspection Skin no rashes or lesions noted Neuro CN's II-XII intact bilaterally Psych affect normal Results Lab / Micro Data Result Diagrams: 11/06/21 07:30 11/06/21 07:30 Labs: Laboratory Results - last 24 hr 11/06/21 07:30: WBC 6.2, RBC 5.53, Hgb 16.0, Hct 46.2, MCV 83.5, MCH 28.9, MCHC 34.6, RDW Std Deviation 37.2, RDW Coeff of Jose 12.2, Plt Count 169, MPV 10.7, Immature Gran % (Auto) 0.600, Neut % (Auto) 68.3, Lymph % (Auto) 21.9, Dillon % (Auto) 8.2, Eos % (Auto) 0.8, Baso % (Auto) 0.2, Absolute Neuts (auto) 4.2, Absolute Lymphs (auto) 1.36, Nucleated RBC % 0 11/06/21 07:30: Sodium 139, Potassium 4.1, Chloride 108 H, Carbon Dioxide 27.0, Anion Gap 4 L, BUN 17, Creatinine 0.77, Estim Creat Clear Calc 123.60, Est GFR (MDRD) Af Amer 137, Est GFR (MDRD) Non-Af 113, BUN/Creatinine Ratio 22.0 H, Glucose 116 H, Calcium 8.7, Troponin I High Sens 3 11/06/21 09:35: Troponin I High Sens 45 11/06/21 13:42: Troponin I High Sens 201 H* Radiology Impression Chest X-Ray 11/06/21 08:11 IMPRESSION: Normal x-ray examination of the chest. Electronically Signed: Dylan Lobo MD at 9:01 EDT , Assessment & Plan Assessment/Plan (1) Chest pain: (2) NSTEMI (non-ST elevated myocardial infarction): PLAN: Patient is a 51-year-old male who was admitted to [facility] on 11/06/2021 for evaluation management of chest pain with elevated cardiac enzymes. 1) NSTEMI Cardiac enzymes elevated at 3, 45 and 201 respectively. EKG and chest x-ray are unremarkable. Plan; admit to PCU for cardiac monitoring, obtain echocardiogram, cardiac cath in a.m., cardiology consulted, initiate aspirin, statin and beta-b locker. 2) depression/anxiety Continue bupropion and Lexapro. DVT prophylaxis - hold chemoprophylaxis for upcoming cardiac catheterization. Patient seen by Néstor Sheridan PA-C, under the supervision of Dr. Ambrocio. Time spent on patient care: 25 minutes. Documented by User: Dr. Delfin Ambrocio, 11/06/21 18:50 HPI - General General Date of Admission: 11/06/21 [facility] Medical History Asthma Chest pain Depression Difficulty balancing Fatigue Fever Knee pain Lung disease Migraines Sarcoidosis Sleep apnea SOB (shortness of breath) Home Medications escitalopram oxalate 10 mg tablet 20 mg PO DAILY 08/13/18 [History Last Taken Unknown] fluticasone furoate 1 puff IH DAILY 03/22/19 [History Last Taken Unknown] albuterol 90 mcg INHALATION Q4H PRN PRN 11/06/21 [History Last Taken Unknown] bupropion HCl 150 mg PO DAILY 11/06/21 [History Last Taken Unknown] Allergy/AdvReac Type Severity Reaction Status Date / Time Penicillins Allergy Unknown Verified 11/06/21 07:49 Family History (Updated 11/06/21 @ 16:01 by Néstor MOCTEZUMA) Father Asthma Diabetes Heart disease Hypertension Mother No problems noted. Other Cancer Surgical History History of biopsy History of colonoscopy (~03/24/19) Social History Smoking Status: Never smoker alcohol intake: current alcohol intake frequency: a few times a week Alcohol type: hard liquor substance use type: does not use caffeine: Yes frequency: does not exercise Results Lab / Micro Data Result Diagrams: 11/06/21 07:30 11/06/21 07:30 Charges/Coding Addendum Addendum: Patient was seen and examined independently of Néstor Sheridan, he came to the ER today for evaluation of chest discomfort which occurred early this morning while at rest, he states the discomfort was like a burning sensation that radiated from his mid precordial area to the left side of his chest, up into his left shoulder and down his left arm. 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 Patient was given 2 nitroglycerin which she says took away most of the discomfort. Patient states that he has chronic chest pain due to a past history of sarcoidosis but this dis comfort that he had today was unlike his previous chest discomfort. On examination he appeared in good health and spirits. Vital signs as documented. Skin warm and dry and without overt rashes. Neck without JVD, neck was supple, trachea midline, thyroid was normal. Lungs clear bilaterally, normal air movement was noted. Heart exam notable for regular rhythm, normal sounds and absence of murmurs, rubs or gallops. Abdomen unremarkable and without evidence of organomegaly, masses, or abdominal aortic enlargement. Bowel sounds are present, abdomen is not distended. Extremities nonedematous, no cyanosis was noted, no clubbing was noted. Neuro: Cranial nerves II through XII are grossly intact, no focal motor deficits were noted, sensation to light touch and pinprick intact, motor exam 5/5 throughout. Psych: Patient is alert and oriented x3, he does not appear anxious or depressed, he does not appear agitated. Work-up in the emergency room included an EKG which showed a normal sinus rhythm without evidence of ischemic changes, patient had 2 troponins performed in the emergency room both of which were within the normal range although the second troponin was more elevated than the first troponin, patient CBC and chemistry profile was unremarkable, patient's chest x-ray was normal. Impression: #1 chest pain-etiology unclear initially-since then it appears that he has had a non-STEMI, patient was initially placed into observation status on MedSurg, at the time of this dictation, a third troponin had been obtained which did show elevation in indicated that the patient had a non-STEMI. I contacted cardiology, cardiology will set the patient up for cardiac catheterization zana colbert. Patient will have an echocardiogram performed, he was placed on a statin, a baby aspirin daily, and beta-joe. #2 chronic depression-patient will continue on his antidepressants #3 sarcoidosis-patient was placed on aerosol treatments-he uses a steroid inhaler at home, I placed him on Pulmicort while hospitalized. I have reviewed Néstor Sheridan's history and physical including his medical assessment and plan of care and with the above additions endorse it. Total clinical time spent by myself addressing the patient's issues, reviewing the patient's medical data, and collaborating with the patient's care team: 45 minutes Visit Charges Inpatient E&M: 50059 Init Hosp L3
[2021-11-06] MEDS: Metoprolol Tartrate 25 MG Tablet 12.5 MG PO ×2 (16:01→22:50)
--- NOTE | 2021-11-06 18:29 | PCM.CONS.C ---
Assessment & Plan Assessment/Plan (1) NSTEMI (non-ST elevated myocardial infarction): PLAN: The patient has abnormal cardiac enzymes/high-sensitivity troponin I levels concerning for an acute non-ST segment elevation HI. It is unclear at this time whether this is a type I event from underlying CAD versus a type II event being brought out from a non-CAD process. At the moment the patient is being monitored. He has been placed on medical management. He has undergone noninvasive evaluation. He has been recommended for further invasive evaluation with diagnostic cardiac catheterization. The cardiac catheterization procedure and risk were discussed with the patient. He was agreeable to this approach. (2) Chest pain: PLAN: The patient has a longstanding history of chest discomfort. He has undergone noninvasive valuation as noted in the past. At the present time based upon his ongoing clinical course and objective findings he has now been recommended for further invasive cardiovascular evaluation. This includes diagnostic cardiac catheterization. Depending upon the findings, if it does not appear the patient has angiographically significant CAD, then he may need to be considered for further non-CAD and/or noncardiac evaluation of his chest discomfort. This could include further evaluation for thromboembolic disease such as pulmonary emboli with laboratory studies and/or chest CT with IV contrast as well as additional nonvascular evaluation of chest discomfort. (3) Sarcoidosis: PLAN: The patient has a history of sarcoidosis. He states he was treated for this in the past. He has been undergoing reevaluation for this noninvasively with the aforementioned radiologic studies. He will need to continue evaluation care per his tile classifier for this concern. Addt'l Comments The patient's case was discussed and reviewed with the patient, the [facility] emergency department staff, and Dr. Ambrocio. This note was generated using a voice recognition system and there may be incorrect words, spelling or punctuation that were not noted when reviewing the office note prior to saving. HPI Consult Data Date of Consult: 11/06/21 HPI Narrative HPI Narrative: NAHED STEVENS, is a 51 year old white male who presents for cardiovascular consultation based upon concerns of chest pain and abnormal high-sensitivity troponin I levels superimposed upon a history of underlying pulmonary disease with reactive airway disease and sarcoidosis. The patient states that he has undergone evaluation in the past for concerning chest discomfort from a noninvasive standpoint which has been unremarkable. He notes that more recently he has been experiencing chest discomfort again which he describes as a burning sensation that radiates across his chest and down his left upper extremity. Today this discomfort became much more prominent. He presented to the emergency department for further evaluation. He was treated with nitroglycerin sublingual which she states relieved his burning chest discomfort sensation. His initial cardiac enzymes were negative and his initial ECG demonstrated no acute ECG changes. However a subsequent troponin I level was noted to have increased. Thus he was recommended for further evaluation as an inpatient. His subsequent troponin I levels continue to increase into the positive range. He denies any ongoing symptoms of acute orthopnea or PND or peripheral pitting edema. He denies any ongoing palpitations or episodes of near syncope/syncope. He states he has been recently undergoing evaluation by his tile classifier for recurrence of his sarcoidosis which was treated greater than 10 years ago with corticosteroid therapy. This evaluation included a noncontrast chest CT scan performed yesterday which was reported by radiology as being a normal unenhanced CT chest examination. He had a chest x-ray performed today which was also reported by radiology as being a normal x-ray examination of the chest. He underwent a transthoracic echocardiogram today. The results are noted below. He has been recommended based upon his symptoms and his abnormal troponin I levels for further evaluation of his coronary status with diagnostic cardiac catheterization. [facility] Medical History Asthma Chest pain Depression Difficulty balancing Fatigue Fever Knee pain Lung disease Migraines Sarcoidosis Sleep apnea SOB (shortness of breath) Home Medications escitalopram oxalate 10 mg tablet 20 mg PO DAILY 08/13/18 [History Last Taken Unknown] fluticasone furoate 1 puff IH DAILY 03/22/19 [History Last Taken Unknown] albuterol 90 mcg INHALATION Q4H PRN PRN 11/06/21 [History Last Taken Unknown] bupropion HCl 150 mg PO DAILY 11/06/21 [History Last Taken Unknown] Allergy/AdvReac Type Severity Reaction Status Date / Time Penicillins Allergy Unknown Verified 11/06/21 07:49 Family History (Updated 11/06/21 @ 16:01 by Néstor MOCTEZUMA) Father Asthma Diabetes Heart disease Hypertension Mother No problems noted. Other Cancer Surgical History History of biopsy History of colonoscopy (~03/24/19) Social History Smoking Status: Never smoker alcohol intake: current alcohol intake frequency: a few times a week Alcohol type: hard liquor substance use type: does not use caffeine: Yes frequency: does not exercise ROS Constitutional Constitutional: Reports as per HPI Eyes Eyes: Reports as per HPI ENT HEENT: Reports as per HPI Cardiovascular Cardiovascular: Reports chest pain and chest pain at rest Respiratory/Chest Respiratory/Chest: Reports as per HPI Gastrointestinal Gastrointestinal: Reports as per HPI Genitourinary Genitourinary: Reports as per HPI Musculoskeletal Musculoskeletal: Reports as per HPI Integumentary Integumentary: Reports as per HPI Neurologic Neurologic: Reports as per HPI Psychiatric Psychiatric: Reports as per HPI Physical Exam Const alert, oriented x3 and no apparent distress Orientation / Consciousness: awake HEENT normocephalic, head/scalp atraumatic and hearing grossly normal bilaterally Eyes PERRL, EOMs intact bilaterally and conjunctivae normal Neck full ROM, supple and no JVD Resp clear to auscultation bilaterally Cardio regular rate, regular rhythm, S1 normal heart sound and S2 normal heart sound GI normal to inspection, nondistended, normoactive bowel sounds Extremity no pedal edema Skin no rashes or lesions noted Neuro oriented x3, moves all extremities, no focal motor deficits and no sensory deficits noted Psych mental status grossly normal Risk Stratification Risk Stratification Applicable: Yes Age >/= 65: No >/= 3 CAD Risk Factors (HTN, HLD, DM, family hx of CAD, or current smoker): No Aspirin Use in the Past 7 Days: No Severe Angina (>/= episodes in 24 hours): Yes EKG ST Changes >/= 0.5mm: No Positive Cardiac Marker: Yes FAVIO Risk Stratification Score: 2 FAVIO % Risk: 8% Risk Procedure Criteria Type of Procedure Procedure Type: Elective Elective Risks - COVID COVID Risk Discussion: The surgeon/proceduralist and patient have discussed in detail the risk of exposure to and/or potential harm posed by the COVID-19 virus with having a surgery/procedure at this time versus the risk of delaying the surgery/procedure. It is not possible to know either the risk of delaying the surgery or procedure or chance of getting an infection with perfect accuracy, but a joint decision was made between the patient and the surgeon/proceduralist to proceed at this time with the scheduled surgery/procedure as indicated on the consent form. Objective Data Vital Signs: Vital Signs Temp Pulse Resp BP Pulse Ox 98.2 F 78 16 138/92 H 95 11/06/21 18:00 11/06/21 18:00 11/06/21 18:00 11/06/21 18:00 11/06/21 18:00 Oxygen Delivery Method Room Air Weight: 229 lb 8.019 oz Body Mass Index (BMI) 31.1 Intake & Output: Intake and Output for Last 24 Hours 11/04/21 11/05/21 11/06/21 23:59 23:59 23:59 Intake Total 650 / 650 Balance 650 / 650 Lab / Micro Data Result Diagrams: 11/06/21 07:30 11/06/21 07:30 Labs: Laboratory Results - last 24 hr 11/06/21 07:30: WBC 6.2, RBC 5.53, Hgb 16.0, Hct 46.2, MCV 83.5, MCH 28.9, MCHC 34.6, RDW Std Deviation 37.2, RDW Coeff of Jose 12.2, Plt Count 169, MPV 10.7, Immature Gran % (Auto) 0.600, Neut % (Auto) 68.3, Lymph % (Auto) 21.9, [place] % (Auto) 8.2, Eos % (Auto) 0.8, Baso % (Auto) 0.2, Absolute Neuts (auto) 4.2, Absolute Lymphs (auto) 1.36, Nucleated RBC % 0 11/06/21 07:30: Sodium 139, Potassium 4.1, Chloride 108 H, Carbon Dioxide 27.0, Anion Gap 4 L, BUN 17, Creatinine 0.77, Estim Creat Clear Calc 123.60, Est GFR (MDRD) Af Amer 137, Est GFR (MDRD) Non-Af 113, BUN/Creatinine Ratio 22.0 H, Glucose 116 H, Calcium 8.7, Troponin I High Sens 3 11/06/21 09:35: Troponin I High Sens 45 11/06/21 13:42: Troponin I High Sens 201 H* Cardiology Labs/Tests 11/06/21 07:30: WBC 6.2, RBC 5.53, Hgb 16.0, Hct 46.2, MCV 83.5, MCH 28.9, MCHC 34.6, Plt Count 169, MPV 10.7, Immature Gran % (Auto) 0.600, Neut % (Auto) 68.3, Lymph % (Auto) 21.9, [place] % (Auto) 8.2, Eos % (Auto) 0.8, Baso % (Auto) 0.2, Absolute Neuts (auto) 4.2, Nucleated RBC % 0 11/06/21 07:30: Sodium 139, Potassium 4.1, Chloride 108 H, Carbon Dioxide 27.0, Anion Gap 4 L, BUN 17, Creatinine 0.77, Est GFR (MDRD) Af Amer 137, Est GFR (MDRD) Non-Af 113, BUN/Creatinine Ratio 22.0 H, Glucose 116 H, Calcium 8.7 Rhythm: Sinus rhythm EKG: Sinus rhythm ECHO: As noted below Stress Test: 08-31-2018 Stress Test Report Exercise stress test. 48-year-old male with a history of chest pain. Stress protocol: Resting EKG demonstrates normal sinus rhythm with a rate of 66 bpm normal intervals are noted resting blood pressure 128/84 mmHg. The patient exercised according to regular Steven protocol for total duration of 11 minutes completing 2 minutes into stage IV of the Steven protocol. The maximum heart rate attained was 162 bpm which was 93% of maximum predicted heart rate the maximum workload was 13.4 metabolic equivalents. At rest there were no ST or T wave changes noted suggest ischemia peak exercise upsloping ST changes were only were noted with normally the criteria for ischemia. No clinical angina was noted. The test was terminated due to leg fatigue. Resting blood pressure 128/84 with a peak blood pressure 170/90. Conclusion: Exercise stress test with no EKG criteria for ischemia at a high workload. No clinical angina noted. No arrhythmias noted. Radiography Diagnostic Testing: Radiology Impression Chest X-Ray 11/06/21 08:11 IMPRESSION: Normal x-ray examination of the chest. Electronically Signed: Dylan Lobo MD at 9:01 EDT , Echocardiogram 11/06/21 12:56 Interpretation Summary The study was technically difficult. Contrast injection was performed. Left ventricular systolic function is normal. The estimated ejection fraction is 65 %. Mild concentric left ventricular hypertrophy. Trivial mitral valve insufficiency. Trivial tricuspid valve insufficiency. Right ventricular systolic pressure estimated to be 34 mmHg. No evidence for diastolic dysfunction. Ordering Physician: Lolly^Delfin^^^DO Referring Physician: Sanjay York MD Performed By: Radha Arnold RCS
[2021-11-06] MEDS: Budesonide Respules 0.5 MG/2 ML AMPUL.NEB. INHALATION (19:18)
[2021-11-06] MEDS: Atorvastatin Calcium 80 MG Tablet PO (21:24)
[2021-11-06] MEDS: 0.9% Saline Lock 10 ML Syringe IV (21:25)
[2021-11-07] VITALS (19 sets, daily range): BP systolic 113–139; BP diastolic 79–99; PULSE 62–91; RESP 16–20; TEMP 36.4–36.6; O2SAT 94–98
--- NOTE | 2021-11-07 05:55 | EKG12_ITS ---
Test Reason : POSTPCI Blood Pressure : / mmHG Vent. Rate : 066 BPM Atrial Rate : 066 BPM P-R Int : 178 ms QRS Dur : 100 ms QT Int : 402 ms P-R-T Axes : 049 -12 017 degrees QTc Int : 421 ms Normal sinus rhythm Normal ECG When compared with ECG of 07-NOV-2021 05:17, MANUAL COMPARISON REQUIRED, DATA IS UNCONFIRMED Confirmed by PIPPA GARRIDO, ASHLEE ([id number]), content editor DUKE ALVAREZ ([id number]) on 11/15/2021 1:04:11 PM Referred By: CORIE Confirmed By:ASHLEE DAS MD
[2021-11-07] MEDS: Metoprolol Tartrate 25 MG Tablet 12.5 MG PO ×2 (06:38→21:34)
[2021-11-07] MEDS: Aspirin 81 MG TAB.CHEW PO (06:39)
--- NOTE | 2021-11-07 07:37 | NURSING ---
Gave verbal report to Richi RN in construction or leak gang laborer
--- NOTE | 2021-11-07 09:45 | EKG12_ITS ---
Test Reason : PRE HEART CATH Blood Pressure : / mmHG Vent. Rate : 069 BPM Atrial Rate : 069 BPM P-R Int : 172 ms QRS Dur : 100 ms QT Int : 406 ms P-R-T Axes : 033 -14 005 degrees QTc Int : 435 ms Normal sinus rhythm Normal ECG Confirmed by GEOVANI GARRIDO, MELLISSA ([id number]), editor in chief newspaper DUKE ALVAREZ ([id number]) on 11/15/2021 1:32:12 PM Referred By: Pernell Mahan Confirmed By:MELLISSA OLIVO MD
--- NOTE | 2021-11-07 09:48 | PCIREPORT_ITS ---
PCI Cardiac Cath Report PCI Report: Procedure performed; 1. Successful PCI of the culprit subtotal 99% stenosis of the mid LAD With predilatation using 2 x 12 mm balloon, followed by placement of drug- eluting stent 3 x 22 mm SARA/O[place] Postdilated using 3.5 x 50 mm NC Emerge balloon With reduction of stenosis from 99% to 0/no residual stenosis and improvement of FAVIO flow from FAVIO II to FAVIO-3 flow. 2. PTCA of a small sidebranch D2/second diagonal using 2 x 15 mm emerge balloon. Consent; Risk and benefit of procedure explained in detail to the patient elected to proceed informed consent obtained. Preprocedure diagnosis; Patient is a 51-year-old seen and evaluated by his primary loader semiconductor dies Dr. White as he had symptoms of chest pain with a clinical diagnosis of CAD/non- ST elevation AK had abnormally high sensitivity troponin levels. Patient known to have a pulmonary disease with reactive airway disease and sarcoidosis. Cardiac cath findings discussed his left main is normal angiographically bifurcating into LAD and left circumflex The culprit lesion is mid LAD which is subtotal 99 involving a small side branch less than 2 mm which is tight 90% of the sidebranch with a FAVIO flow in the LAD. The left circumflex is moderate to large in size with a diffuse proximal to mid circumflex atherosclerosis of around 50 to 60% RCA is large dominant with the 370-75% stenosis involving the distal RCA which bifurcates into posterolateral and RPDA. Had mild anteroapical hypokinesia with mildly reduced LV systolic function on the ventriculogram. Based on the clinical presentation we will proceed with a PCI of the culprit lesion which is the mid LAD with the plan of angioplasty of the sidebranch. Interventional equipment used; 1. 6 [place] 3.5 EBU guide catheter 2. 0.014 BMW universal straight 190 cm guidewire. 3. 0.014 run-through extra floppy 180 cm straight wire. 4. 2 x 12 mm emerge MR balloon 5. 3 x 22 mm drug-eluting stent/Orsiro [place] Medication used in the Drawer Hardware Worker Patient initially was given 3000 units of heparin through the right radial sheath by Dr. White and we gave him 7000 units of heparin IV ACT level was checked. Patient was given Brilinta 180 mg in the Drawer Hardware Worker as well as an aspirin Symptoms of chest pain is mild Procedure in detail; Under fluoroscopic guidance we will proceed with the 6 [place] 3.5 EBU guide advanced ascending aorta cannulated the left main without difficulty Then we used a run-through wire across the lesion in the subtotal LAD predilated the lesion followed by placement of drug-eluting stent and postdilated using 3.5 x 50 mm NC balloon and achieved an excellent result with no evidence of proximal or distal dissection noted worsening of the sidebranch which is a small branch then we proceed with the BMW wire across the lesion and through the struts of the stents and then dilate the lesion at the ostium of the sidebranch which is a small less than 2 mm. Following this all catheters removed hemostasis maintained with placement of TR band to the right radial artery arteriotomy site with no complication in the Drawer Hardware Worker Recommendation plan 1. Patient to continue on DAPT Brilinta/aspirin for 1 year and to continue to follow-up with his primary loader semiconductor dies Dr. White 2. He had lesion in the distal RCA and this can be set up as an elective PCI of the distal RCA 2 - 3 weeks 3. Had a diffuse intermediate lesion in the left circumflex and this can be evaluated further with IFR in the Drawer Hardware Worker. Pernell Mahan MD,FAC,[facility]
[2021-11-07] MEDS: Escitalopram Oxalate 20 MG Tablet PO (09:49)
[2021-11-07] MEDS: buPROPion (SR) 150 MG Tablet.SA PO (09:49)
[2021-11-07] MEDS: TICAGRELOR 90 MG TABLET PO (09:50)
[2021-11-07] MEDS: Lisinopril 10 MG Tablet PO (09:50)
--- NOTE | 2021-11-07 09:59 | PCM.PN.CARD ---
Subjective Subjective The patient is status post diagnostic cardiac catheterization and subsequent LAD PCI and diagonal branch PTCA. He appears without any acute adverse cardiovascular events at this time. Objective Data Vital Signs: Vital Signs Temp Pulse Resp BP Pulse Ox 97.9 F 65 18 123/88 H 94 11/07/21 06:34 11/07/21 09:45 11/07/21 09:45 11/07/21 09:45 11/07/21 09:45 Oxygen Delivery Method Room Air Weight: 229 lb 8.019 oz Body Mass Index (BMI) 31.1 Intake & Output: Intake and Output for Last 24 Hours 11/05/21 11/06/21 11/07/21 23:59 23:59 23:59 Intake Total 800 / 800 Balance 800 / 800 Lab / Micro Data Result Diagrams: 11/06/21 07:30 11/06/21 07:30 Labs: Laboratory Results - last 24 hr 11/06/21 09:35: Troponin I High Sens 45 11/06/21 13:42: Troponin I High Sens 201 H* Cardiology Labs/Tests Rhythm: Sinus rhythm EKG: Sinus rhythm Radiography Diagnostic Testing: Radiology Impression Echocardiogram 11/06/21 12:56 Interpretation Summary The study was technically difficult. Contrast injection was performed. Left ventricular systolic function is normal. The estimated ejection fraction is 65 %. Mild concentric left ventricular hypertrophy. Trivial mitral valve insufficiency. Trivial tricuspid valve insufficiency. Right ventricular systolic pressure estimated to be 34 mmHg. No evidence for diastolic dysfunction. Ordering Physician: Lolly^Delfin^^^ Referring Physician: Sanjay York MD Performed By: Radha Arnold RCS Physical Exam Const alert, oriented x3 and no apparent distress Orientation / Consciousness: awake HEENT normocephalic, head/scalp atraumatic and hearing grossly normal bilaterally Eyes PERRL, EOMs intact bilaterally and conjunctivae normal Neck full ROM, supple and no JVD Resp clear to auscultation bilaterally Cardio regular rate, regular rhythm, S1 normal heart sound and S2 normal heart sound GI normal to inspection, nondistended, normoactive bowel sounds Extremity no pedal edema Peripheral Pulses: Yes radial pulses present right (No obvious bruit: No obvious hematoma) 2+ Skin no rashes or lesions noted Neuro oriented x3, moves all extremities, no focal motor deficits and no sensory deficits noted Psych mental status grossly normal Assessment & Plan Assessment/Plan (1) NSTEMI (non-ST elevated myocardial infarction): PLAN: The patient has abnormal cardiac enzymes/high-sensitivity troponin I levels concerning for an acute non-ST segment elevation [place]. The patient has undergone subsequent evaluation with diagnostic cardiac catheterization. He was noted to have angiographically significant appearing CAD of the LAD distribution as well as CAD involving the LCx and RCA distribution. The LAD distribution appeared to be the most angiographically significant and a culprit vessel. Thus he underwent subsequent LAD PTCA/SARA and diagonal branch PTCA. He will continue medical management. He will be considered for a staged cardiac intervention/percutaneous evaluation and care procedure of his LCx with consideration to FFR and his RCA with consideration to additional PTCA/SARA. (2) Chest pain: PLAN: The patient has a longstanding history of chest discomfort. It does appear he has underlying CAD. Thus at the present time he will continue medical therapy. (3) Sarcoidosis: PLAN: The patient has a history of sarcoidosis. He states he was treated for this in the past. He has been undergoing reevaluation for this noninvasively with the aforementioned radiologic studies. He will need to continue evaluation care per his assistant project engineer for this concern. Addt'l Comments The patient's case was discussed and reviewed with Dr. Ambrocio and Dr. Mahan of Interventional Cardiology. This note was generated using a voice recognition system and there may be incorrect words, spelling or punctuation that were not noted when reviewing the office note prior to saving.
[2021-11-07] MEDS: 0.9% Normal Saline 1,000 ML 75 ML IV ×2 (10:00→17:14)
--- NOTE | 2021-11-07 10:00 | EKG12_ITS ---
Test Reason : AM EKG Blood Pressure : / mmHG Vent. Rate : 072 BPM Atrial Rate : 072 BPM P-R Int : 168 ms QRS Dur : 100 ms QT Int : 400 ms P-R-T Axes : 044 -09 005 degrees QTc Int : 438 ms Normal sinus rhythm Normal ECG When compared with ECG of 07-NOV-2021 10:40, MANUAL COMPARISON REQUIRED, DATA IS UNCONFIRMED Confirmed by MAMTA GARRIDO, STEPHANIE ([id number]), videotape editor DUKE ALVAREZ ([id number]) on 11/16/2021 1:15:57 PM Referred By: DR CLEMENTE Confirmed By:SANDI OLEARY MD
--- NOTE | 2021-11-07 10:15 | CL.D_ITS ---
Patient Name: NAHED STEVENS Study Date: 11/07/2021 Performing: Mateo White MD Ht: 72 inches 183 cm : 1970 Wt: 229.6 lbs 104 kg Age: 51 Gender: male BSA: 2.26 PROCEDURE(S) PERFORMED [id number])LHC/COR/LV [id number])SARA W/WO PTCA, SINGLE CORONARY ARTERY IC02-([id number])PTCA, EACH ADD'L CORONARY ART, SAME MAJOR CLINICAL PROFILE AND INDICATIONS Indications: ACS <= 24 hrs Heart Failure: None Stress/Imaging Stress/Image Study Performed: No Angina Classification Anginal Classification w/in 2 Weeks: CCS IV CAD Presentations: Non-STEMI. Unstable angina. CONCLUSIONS Elevated Left Ventricular End Diastolic Pressure Segmented LV systolic dysfunction- Mild LVEF: by LV gram 55 % [place] Multivessel CAD RECOMMENDATIONS Risk factor modification Medical therapy Referred for immediate PCI DESCRIPTION OF PROCEDURE The patient arrived to the procedure lab. The risks and benefits of the procedure as well as a full d escription of our services here and current unavailability of surgical backup were fully explained to the patient and/or their significant other prior to the catheterization. The Timeout was completed, verifying the correct patient and procedure. The patient's procedural site was prepped and draped in the usual fashion. Local anesthetic was given subcutaneously to right radial region with Lidocaine 2% . Using a modified Seldinger technique, arterial access was obtained via the right radial artery, a 6 Fr sheath was inserted. Left Coronary Artery selective angiography was performed in multiple views u sing a 5 Fr. 4.0 [place] catheter. Right Coronary Artery selective angiography was then performed in mu ltiple views using a 5 Fr. 4.0 [place] catheter. Left Ventriculography was performed in TEJEDA projection using a 5 Fr. [place] catheter. LV to AO pullback pressures were then recorded.The arterial sheath was pulled and a TR Band was applied for hemostasis CORONARY ANGIOGRAPHY DOMINANCE: Right Dominant LEFT HEART ASSESSMENT Left Ventricular Ejection Fraction: by LV Gram 55 % Anterior Hypokinesis Elevated Left Ventricular End Diastolic Pressure LEFT MAIN: Angiographically normal LEFT ANTERIOR DESCENDING ARTERY: PROX LAD: Mild luminal irregularities MID LAD: 95 % Stenosis CIRCUMFLEX ARTERY: Mild luminal irregularities MID CIRC: diffuse: eccentric: 25 % Stenosis, 50 % Stenosis RIGHT CORONARY ARTERY: Mild luminal irregularities DISTAL RCA: 50 % Stenosis, eccentric: 85 % Stenosis AORTIC ROOT: Angiographically normal COMPLICATIONS No Complications PROCEDURE MEDICATIONS Versed 1 mg IV Fentanyl 50 mcg IV Versed 1 mg IV Fentanyl 50 mcg IV Oxygen: 2 L/min via nasal cannula Heparin given IA 11/07/2021 08:05:36 Heparin 5000 unit(s) IV 11/07/2021 08:29:52 Nitro 200 mcg IC 11/07/2021 08:53:59 Nitro 200 mcg IC 11/07/2021 08:53:59 Verapamil 2.5mg, Ntg 100mcgs, 3000 units of Heparin given IA 11/07/2021 08:05:36 SUMMARY OF HEMODYNAMIC DATA Time AIR REST ECG 07:40:48 AO 132/100 (115) SA 08:13:37 LV 118/-4, 17 08:23:22 LV 118/-4, 14 08:23:29 LV 127/-5, 19 08:24:32 LV 122/-9, 17 08:24:39 LVp 123/-8, 14 08:24:46 AOp 100/62 (80) 08:24:51 Signed By Mateo White MD On 11/07/2021 10:14:37 AM Signed By Mateo White MD On 11/07/2021 10:14:11 AM Mateo White MD
--- NOTE | 2021-11-07 10:51 | CRPH1.INST_ITS ---
General Education CAD and cardiac anatomy and function:: Patient communicates acknowledgment, Family communicates acknowledgment Explanation of diagnoses and procedures:: Patient communicates acknowledgment, Family communicates acknowledgment Sign/Symptoms of FL:: Patient communicates acknowledgment, Family communicates acknowledgment Antiplatelet therapy: Patient communicates acknowledgment, Family communicates acknowledgment Proper use of NTG-SL: Patient communicates acknowledgment, Family communicates acknowledgment Emergency procedures and activation of EMS: Patient communicates acknowledgment, Family communicates acknowledgment Compliance of all prescribed medications: Patient communicates acknowledgment, Family communicates acknowledgment Smoking Patient Nicotine/Smoking Risk Factors Are:: Never smoked Dyslipidemia Recommendations Include:: Lipid profile not available Dyslipidemia Response Code:: Patient communicates acknowledgment, Family communicates acknowledgment Overweight/Obesity Patient Overweight/Obesity Risk Factors Are:: Obesity - > or = 30 Recommendations Include:: Weight loss of 5-10%, Reduced calorie diet, Exercise 5-7 times/week Overweight/Obesity:: Patient communicates acknowledgment, Family communicates acknowledgment Hypertension Recommendations Include:: Maintain BP <130/85, Decrease/maintain normal body weight Hypertension:: Patient communicates acknowledgment, Family communicates acknowledgment Heart Disease Patient Heart Disease Risk Factors Are:: Family history of heart disease < 65 years old Recommendations Include:: Educated family members of their risk Heart Disease Response Code:: Patient communicates acknowledgment, Family communicates acknowledgment Sedentary Recommendations Include:: Aerobic exercise 5-7 times/week for 20-30 minutes continuously, Benefits of regular exercise, Discussed home walking program, Monitored Outpatient Cardiac Rehab Sedentary Response Code:: Patient communicates acknowledgment, Family com municates acknowledgment Stress Recommendations Include:: Identification of stressors, and assessment of coping skills, Stress management techniques Stress Response Code:: Patient communicates acknowledgment, Family communicates acknowledgment
--- NOTE | 2021-11-07 10:51 | CRPHASE1 ---
Patient Communication PHII Cardiac Rehab Discussed with Patient:: Yes Guide to Cardiac Rehab Given to Patient:: Yes Cardiac Rehab Facility Choice List Given to Patient:: Yes Choice Program [facility] PHII:: Communication Given to CR Manager Of Environmental Services:: Pernell Mahan Phase II Cardiac Rehab:: Yes Sessions:: 36 sessions - 3 days/wk, 12 weeks Cardiac Rehabilitation Info Cardiac Rehabilitation Program Information: Cardiac Rehabilitation is important for patients like you who are recovering from a heart problem. Cardiac rehabilitation programs are recognized as integral to the continued care of the patient with coronary heart disease. The cardiac rehabilitation program is designed to optimize a patient's physical, psychological, and social functioning. Health patient care secretary work in cardiac rehabilitation programs and assist you with getting the treatments you need to get stronger and healthier - like exercise, healthy eating habits, and medications. Cardiac rehabilitation has been show to help people with heart problems live longer and have better life enjoyment than people who do not go to cardiac rehabilitation. Please contact the Cardiac Rehabilitation Program at [facility] at in two weeks if you have not heard from them.
--- NOTE | 2021-11-07 13:06 | PN.HOSP_ITS ---
Documented by User: Néstor [email or web address] 11/07/21 13:18 Subjective Subjective Patient is a 51-year-old male comfortably resting in bed after cardiac catheterization, alert and orient x3. Patient reports that his chest pain and shortness of breath, both acute and chronic, have resolved after catheterization. Patient denies development of any new symptoms overnight. Does not appear in acute distress. Objective Data Objective Data Vital Signs: Vital Signs Temp Pulse Resp BP Pulse Ox 97.5 F L 78 18 139/92 H 96 11/07/21 12:30 11/07/21 12:30 11/07/21 12:30 11/07/21 12:30 11/07/21 12:30 Oxygen Delivery Method Room Air Weight: 229 lb 8.019 oz Body Mass Index (BMI) 31.1 Intake & Output: Intake and Output for Last 24 Hours 11/05/21 11/06/21 11/07/21 23:59 23:59 23:59 Intake Total 800 / 800 240 / 240 Balance 800 / 800 240 / 240 Lab / Micro Data Result Diagrams: 11/06/21 07:30 11/06/21 07:30 Labs: Laboratory Results - last 24 hr 11/06/21 13:42: Troponin I High Sens 201 H* Radiography Diagnostic Testing: Radiology Impression Echocardiogram 11/06/21 12:56 Interpretation Summary The study was technically difficult. Contrast injection was performed. Left ventricular systolic function is normal. The estimated ejection fraction is 65 %. Mild concentric left ventricular hypertrophy. Trivial mitral valve insufficiency. Trivial tricuspid valve insufficiency. Right ventricular systolic pressure estimated to be 34 mmHg. No evidence for diastolic dysfunction. Ordering Physician: Lolly^Delfin^^^ Referring Physician: Sanjay York MD Performed By: Radha Arnold RCS Physical Exam Const alert, oriented x3 and no apparent distress HEENT head/scalp atraumatic and moist oral mucous membranes Head and Scalp: normocephalic Eyes PERRL and conjunctivae normal Neck no lymphadenopathy, supple and no JVD Resp normal respiratory effort, no retractions and no use of accessory muscles Cardio regular rate, regular rhythm and no JVD GI normal to inspection, nondistended, normoactive bowel sounds Extremity normal to inspection Skin no rashes or lesions noted Neuro CN's II-XII intact bilaterally Psych affect normal Assessment & Plan Assessment/Plan (1) NSTEMI (non-ST elevated myocardial infarction): PLAN: Day 1 Discharge planning: Current plan is for patient to discharge home when medically ready. 1) NSTEMI Patient underwent cardiac catheterization today that revealed elevated left ventricular end-diastolic pressure, mild segmental LV systolic dysfunction, an LVEF of 55% and multi eyak vessel CAD. Patient was referred for immediate stenting, Recommendations per cardiology are initiate risk factor modification therapy as well as lisinopril, aspirin and ticagrelor. 2) depression/anxiety Continue bupropion and Lexapro. DVT prophylaxis - Lovenox Patient seen by Néstor Sheridan PA-C, under the supervision of Dr. Ambrocio. Time spent on patient care: 10 minutes. Documented by User: Dr. Delfin Ambrocio, 11/07/21 14:36 Objective Data Lab / Micro Data Result Diagrams: 11/06/21 07:30 11/06/21 07:30 Charges/Coding Addendum Addendum: Patient was seen and examined today independently of Néstor Sheridan, he underwent a cardiac catheterization today where they discovered an occlusive lesion in the LAD, this was stented with a SARA, he also has a distal occlusive lesion in the right coronary artery, according to the patient, sometime in the future they are going to bring the patient back for a repeat catheterization and address this lesion. Patient has no complaints to this examiner of any shortness of breath or chest pain at this time. On examination he appeared in good health and spirits. Vital signs as documented. Skin warm and dry and without overt rashes. Neck without JVD, neck was supple, trachea midline, thyroid was normal. Lungs clear bilaterally, normal air movement was noted. Heart exam notable for regular rhythm, normal sounds and absence of murmurs, rubs or gallops. Abdomen unremarkable and without evidence of organomegaly, masses, or abdominal aortic enlargement. Bowel sounds are pres ent, abdomen is not distended. Extremities nonedematous, no cyanosis was noted, no clubbing was noted. Neuro: Cranial nerves II through XII are grossly intact, no focal motor deficits were noted, sensation to light touch and pinprick intact, motor exam 5/5 throughout. Psych: Patient is alert and oriented x3, he does not appear anxious or depressed, he does not appear agitated. Impression: #1 acute [id number] present medications with adjustments as directed by cardiology, patient's ejection fraction is normal #2 occlusive coronary disease of the LAD-status post SARA-patient is to remain on his present medications, he will need aggressive cholesterol treatment as outpatient #3 chronic depression-patient will remain on BuSpar and Lexapro #4 sarcoidosis-patient will remain on his inhalers as outpatient, he is presently on Pulmicort and albuterol aerosols here I have reviewed Néstor Sheridan's progress note including his medical assessment and plan of care and with the above additions endorse it. Total clinical time spent by myself addressing the patient's issues, reviewing the patient's medical data, and collaborating with the patient's care team: 25 minutes Visit Charges Inpatient E&M: [id number] [facility] H[facility] L3
[2021-11-07] MEDS: Enoxaparin 40 MG/0.4 ML Syringe SC (17:06)
[2021-11-07] MEDS: Acetaminophen 325 MG Tablet 650 MG PO (18:06)
--- NOTE | 2021-11-07 18:33 | NURSING ---
Reviewed charting with Valentin Denis RN
[2021-11-07] MEDS: Atorvastatin Calcium 80 MG Tablet PO (21:35)
[2021-11-08 03:00] VITALS: PULSE 72
[2021-11-08] MEDS: Acetaminophen 325 MG Tablet 650 MG PO (03:34)
[2021-11-08 03:50] VITALS: BP 106/83; PULSE 76; RESP 16; TEMP 36.6; O2SAT 96
[2021-11-08 05:45] LABS: Absolute Lymphocyte Count 1.21 X10^3/uL (0.83-4.51); Absolute Neutrophil Count 6.6 X10^3/uL (2.0-7.7); Basophil# 0.03 X10^3/uL; Basophil% 0.3 % (0-1); Eosinophil# 0.06 X10^3/uL; Eosinophils% 0.7 % (0-5); Hematocrit 45.5 % (40-54); Hemoglobin 15.6 g/dL (13.0-16.5); Lymphocyte # 1.21 X10^3/ul (0.83-4.51); Lymphocyte % 13.9 % (19-41); Mean Corp Hgb Conc 34.3 g/dL (32-36); Mean Corpuscular Hgb 28.8 pg (27.0-32.0); Mean Corpuscular Volume 83.9 fL (80-94); Mean Platelet Vol. 10.6 fl (6.2-12.0); Monocyte# 0.78 X10^3/uL; NRBC Flagged by Analyzer 0 % (0-5); Neutrophil % 75.9 % (47-70); Platelet Count 168 K/mm3 (150-450); RBC Distribution Width CV 12.5 % (11.6-14.6); RBC Distribution Width SD 37.8 fl (35.1-43.9); Red Blood Count 5.42 M/mm3 (4.6-6.2); White Blood Count 8.7 K/mm3 (4.4-11.0)
[2021-11-08 06:12] LABS: ALB/GLOB Ratio 1.8 RATIO (0.9-2.4); AST(SGOT) 17 U/L (15-37); Alanine Aminotransfer ALT/SGPT 44 U/L (16-61); Albumin, Serum 4.1 g/dL (3.2-5.0); Alkaline Phosphatase 70 U/L (45-117); Anion Gap 4 (5-15); BUN 14 mg/dL (7-18); BUN/Creat Ratio 17.6 RATIO (10-20); Calcium,Total 8.7 mg/dL (8.5-10.1); Chloride 110 mmol/L (98-107); EST Glomerular Filtration Rate 109 mL/min (>60); Est Glom Filt Rate - Afr Amer 132 mL/min (>60); Globulin 2.3 g/dL (2.2-4.2); Glucose 118 mg/dL (74-106); Potassium 4.3 mmol/L (3.5-5.1); Protein, Total 6.4 g/dL (6.4-8.2); Sodium Level 139 mmol/L (136-145)
[2021-11-08 07:02] VITALS: PULSE 70
[2021-11-08 07:55] VITALS: O2SAT 95
--- NOTE | 2021-11-08 08:41 | PCM.DC ---
Discharge Instructions Diet Discharge Diet: No restrictions Activity Discharge Activity: Return to Normal Activity Weight Bearing Status: Full weight bearing Additional Activity Instructions:: no heavy lifting or exertion Follow Up Care Test Results: Test results from this visit will be discussed in further detail at your follow-up appointment, if applicable. Discharge Plan Admission Admit Date/Time: 11/06/21 14:36 Primary Reason for Your Visit: Non STEMI Attending Provider: Delfin Ambrocio Primary Care Provider: Black York Consulting Providers: Mateo White Discharge Orders/Prescriptions Prescriptions: New aspirin 81 mg Tablet,Delayed Release (Dr/Ec) 81 mg PO DAILY@0800 Qty: 0 RF: 0 atorvastatin 80 mg Tablet 80 mg PO QHS Qty: 30 RF: 0 lisinopril 10 mg Tablet 10 mg PO DAILY Qty: 30 RF: 0 metoprolol tartrate 25 mg Tablet 12.5 mg PO BID Qty: 30 RF: 0 Brilinta 90 mg Tablet 90 mg PO BID Qty: 60 RF: 0 Continued escitalopram oxalate [Lexapro] 10 mg tablet 20 mg PO DAILY RF: 0 fluticasone furoate 100 MCG blister with device 1 puff IH DAILY RF: 0 bupropion HCl 150 mg Tablet Sustained-Release 12 Hr 150 mg PO DAILY RF: 0 albuterol 90 mcg/actuation Aerosol 90 mcg INHALATION Q4H PRN PRN (Reason: sob) RF: 0 Referrals / Follow Up: Black York MD [Primary Care Provider] - Within 2 Weeks Mateo White MD [STAFF PHYSICIAN] - See Referral Note (as directed) Disposition Disposition (needs filled in before D/C Order can be placed): Home, Self Care
--- NOTE | 2021-11-08 09:06 | PCM.PN.CARD ---
Subjective Subjective The patient is awake and alert. He denies any ongoing chest discomfort, difficulty breathing, or palpitations. He has been up and ambulating in his room without difficulty. He states overall, compared to how he felt prior to his hospitalization, he no longer feels that chest discomfort/burning sensation. Objective Data Vital Signs: Vital Signs Temp Pulse Resp BP Pulse Ox 97.9 F 70 16 106/83 H 95 11/08/21 03:50 11/08/21 07:02 11/08/21 03:50 11/08/21 03:50 11/08/21 07:55 Oxygen Delivery Method Room Air Weight: 229 lb 8.019 oz Body Mass Index (BMI) 31.1 Intake & Output: Intake and Output for Last 24 Hours 11/06/21 11/07/21 11/08/21 23:59 23:59 23:59 Intake Total 800 / 800 Balance 800 / 800 Lab / Micro Data Result Diagrams: 11/08/21 05:24 11/08/21 05:24 Labs: Laboratory Results - last 24 hr 11/08/21 05:24: WBC 8.7, RBC 5.42, Hgb 15.6, Hct 45.5, MCV 83.9, MCH 28.8, MCHC 34.3, RDW Std Deviation 37.8, RDW Coeff of Jose 12.5, Plt Count 168, MPV 10.6, Immature Gran % (Auto) 0.200, Neut % (Auto) 75.9 H, Lymph % (Auto) 13.9 L, [place] % (Auto) 9.0, Eos % (Auto) 0.7, Baso % (Auto) 0.3, Absolute Neuts (auto) 6.6, Absolute Lymphs (auto) 1.21, Nucleated RBC % 0 11/08/21 05:24: Sodium 139, Potassium 4.3, Chloride 110 H, Carbon Dioxide 25.0, Anion Gap 4 L, BUN 14, Creatinine 0.80, Estim Creat Clear Calc 122.60, Est GFR (MDRD) Af Amer 132, Est GFR (MDRD) Non-Af 109, BUN/Creatinine Ratio 17.6, Glucose 118 H, Calcium 8.7, Total Bilirubin 0.50, AST 17, ALT 44, Alkaline Phosphatase 70, Total Protein 6.4, Albumin 4.1, Globulin 2.3, Albumin/Globulin Ratio 1.8 Cardiology Labs/Tests 11/08/21 05:24: WBC 8.7, RBC 5.42, Hgb 15.6, Hct 45.5, MCV 83.9, MCH 28.8, MCHC 34.3, Plt Count 168, MPV 10.6, Immature Gran % (Auto) 0.200, Neut % (Auto) 75.9 H, Lymph % (Auto) 13.9 L, [place] % (Auto) 9.0, Eos % (Auto) 0.7, Baso % (Auto) 0.3, Absolute Neuts (auto) 6.6, Nucleated RBC % 0 11/08/21 05:24: Sodium 139, Potassium 4.3, Chloride 110 H, Carbon Dioxide 25.0, Anion Gap 4 L, BUN 14, Creatinine 0.80, Est GFR (MDRD) Af Amer 132, Est GFR (MDRD) Non-Af 109, BUN/Creatinine Ratio 17.6, Glucose 118 H, Calcium 8.7, Total Bilirubin 0.50 Rhythm: Sinus rhythm EKG: Sinus rhythm; no acute ECG changes Physical Exam Const alert, oriented x3 and no apparent distress Orientation / Consciousness: awake HEENT normocephalic, head/scalp atraumatic and hearing grossly normal bilaterally Eyes PERRL, EOMs intact bilaterally and conjunctivae normal Neck full ROM, supple and no JVD Resp clear to auscultation bilaterally Cardio regular rate, regular rhythm, S1 normal heart sound and S2 normal heart sound GI normal to inspection, nondistended, normoactive bowel sounds Extremity no pedal edema Skin no rashes or lesions noted Neuro oriented x3, moves all extremities, no focal motor deficits and no sensory deficits noted Psych mental status grossly normal Assessment & Plan Assessment/Plan (1) NSTEMI (non-ST elevated myocardial infarction): PLAN: The patient has abnormal cardiac enzymes/high-sensitivity troponin I levels concerning for an acute non-ST segment elevation ME. The patient has undergone subsequent evaluation with diagnostic cardiac catheterization. He was noted to have angiographically significant appearing CAD of the LAD distribution as well as CAD involving the LCx and RCA distribution. The LAD distribution appeared to be the most angiographically significant and a culprit vessel. Thus he underwent subsequent LAD PTCA/SARA and diagonal branch PTCA. He will continue medical management. He will be scheduled for a staged cardiac intervention/percutaneous evaluation and care procedure of his LCx with consideration to FFR and his RCA with consideration to additional PTCA/SARA. (2) Chest pain: PLAN: The patient has a longstanding history of chest discomfort. It does appear he has underlying CAD. Thus at the present time he will continue medical therapy. (3) Sarcoidosis: PLAN: The patient has a history of sarcoidosis. He states he was treated for this in the past. He has been undergoing reevaluation for this noninvasively with the aforementioned radiologic studies. He will need to continue evaluation care per his stretcher drier operator for this concern. Addt'l Comments The patient's case was discussed and reviewed with the patient, Dr. Mahan of Interventional Cardiology, and Dr. Ambrocio. This note was generated using a voice recognition system and there may be incorrect words, spelling or punctuation that were not noted when reviewing the office note prior to saving. Procedure Criteria Type of Procedure Procedure Type: Elective Elective Risks - COVID COVID Risk Discussion: The surgeon/proceduralist and patient have discussed in detail the risk of exposure to and/or potential harm posed by the COVID-19 virus with having a surgery/procedure at this time versus the risk of delaying the surgery/procedure. It is not possible to know either the risk of delaying the surgery or procedure or chance of getting an infection with perfect accuracy, but a joint decision was made between the patient and the surgeon/proceduralist to proceed at this time with the scheduled surgery/procedure as indicated on the consent form.
[2021-11-08 09:30] VITALS: BP 121/92; PULSE 92
[2021-11-08] MEDS: Metoprolol Tartrate 25 MG Tablet 12.5 MG PO (09:30)
[2021-11-08] MEDS: buPROPion (SR) 150 MG Tablet.SA PO (09:32)
[2021-11-08] MEDS: Enoxaparin 40 MG/0.4 ML Syringe SC (09:32)
[2021-11-08] MEDS: Lisinopril 10 MG Tablet PO (09:32)
[2021-11-08] MEDS: Aspirin E.C. 81 MG Tablet PO (09:32)
[2021-11-08] MEDS: Escitalopram Oxalate 20 MG Tablet PO (09:32)
[2021-11-08] MEDS: TICAGRELOR 90 MG TABLET PO (09:32)
[2021-11-08 09:47] VITALS: BP 121/92; PULSE 92; RESP 18; TEMP 36.4; O2SAT 97
--- NOTE | 2021-11-08 10:07 | DS.PCM_ITS ---
Providers Date of Admission: 11/06/21 Date of Discharge: 11/08/21 Primary Care Physician: Dr. Black York MD Consultations 11/06/21 14:37 Consult: Cardiology Routine Consulting Provider: Mateo White Reason for Consult: NSTEMI EMERGENT Consult: No MD Notified: Yes Date Notified: 11/06/21 Time Notified: 14:37 Method of Notification: Verbal Reason For Visit: chest pain Diagnosis Discharge Diagnosis (1) NSTEMI (non-ST elevated myocardial infarction): Status: Acute Code(s): I21.4 - Non-ST elevation (NSTEMI) myocardial infarction (2) Chest pain: Status: Acute Code(s): R07.9 - Chest pain, unspecified (3) Sarcoidosis: Status: Acute Code(s): D86.9 - Sarcoidosis, unspecified Plan: 1. Acute elc-MGYEH-mnpe II #2 occlusive coronary disease of the LAD #3 chronic depression #4 sarcoidosis #5 nonocclusive coronary artery disease right coronary artery, circumflex artery Medications at Discharge Home Medications escitalopram oxalate 10 mg tablet 20 mg PO DAILY 08/13/18 fluticasone furoate 1 puff IH DAILY 03/22/19 albuterol 90 mcg INHALATION Q4H PRN PRN 11/06/21 bupropion HCl 150 mg PO DAILY 11/06/21 aspirin 81 mg PO DAILY@0800 #0 tab 11/08/21 atorvastatin 80 mg PO QHS #30 tab 11/08/21 lisinopril 10 mg PO DAILY #30 tab 11/08/21 metoprolol tartrate 12.5 mg PO BID #30 tab 11/08/21 ticagrelor [Brilinta] 90 mg PO BID #60 tab 11/08/21 Hospital Course Operations None Procedures 2-D Echocardiogram and Cardiac catheterization (With insertion of SARA mid LAD after angioplasty) Summary of Care Provided Minutes Spent on Discharge: 32 Hospital Course: This 51-year-old white male was seen in the emergency room at [facility] with chief complaint of chest pain which he described as a burning sensation radiating from his precordial area into the left upper chest and down his left arm from his left shoulder. Patient had no history of coronary artery disease, patient was given 2 nitroglycerin by squad which took away his chest discomfort. Work-up in the emergency room included a chest x-ray which showed no evidence of acute pathology, patient's troponin was normal x2 but his second troponin was more elevated than the first troponin. EKG did not show any evidence of acute ischemic changes. Patient was admitted to PCU, his third troponin was over 200 and he was seen in consultation by cardiology, patient underwent an echocardiogram which showed normal LV function, he then underwent a cardiac catheterization which showed occlusive coronary disease in the LAD and nonocclusive coronary disease in the circumflex artery and right coronary artery. A SARA was inserted in the LAD, patient had no complications during his hospitalization. On 11/08/2021, patient was seen and examined: On examination he appeared in good health and spirits. Vital signs as documented. Skin warm and dry and without ove rt rashes. Neck without JVD, neck was supple, trachea midline, thyroid was normal. Lungs clear bilaterally, normal air movement was noted. Heart exam notable for regular rhythm, normal sounds and absence of murmurs, rubs or gallops. Abdomen unremarkable and without evidence of organomegaly, masses, or abdominal aortic enlargement. Bowel sounds are present, abdomen is not distended. Extremities nonedematous, no cyanosis was noted, no clubbing was noted. Neuro: Cranial nerves II through XII are grossly intact, no focal motor deficits were noted, sensation to light touch and pinprick intact, motor exam 5/5 throughout. Psych: Patient is alert and oriented x3, he does not appear anxious or depressed, he does not appear agitated. Patient was felt to be stable for discharge on 11/08/2021, the plan as an outpatient was to have the patient return for a another cardiac catheterization to address a distal lesion in the right coronary artery. Weight / BMI Weight Weight: 104.1 kg Body Mass Index (BMI) 31.1 ABG / Lab / Microbiology Data Result Diagrams: 11/08/21 05:24 11/08/21 05:24 Laboratory: Laboratory Results - last 24 hr 11/08/21 05:24: WBC 8.7, RBC 5.42, Hgb 15.6, Hct 45.5, MCV 83.9, MCH 28.8, MCHC 34.3, RDW Std Deviation 37.8, RDW Coeff of Jose 12.5, Plt Count 168, MPV 10.6, Immature Gran % (Auto) 0.200, Neut % (Auto) 75.9 H, Lymph % (Auto) 13.9 L, [place] % (Auto) 9.0, Eos % (Auto) 0.7, Baso % (Auto) 0.3, Absolute Neuts (auto) 6.6, Absolute Lymphs (auto) 1.21, Nucleated RBC % 0 11/08/21 05:24: Sodium 139, Potassium 4.3, Chloride 110 H, Carbon Dioxide 25.0, Anion Gap 4 L, BUN 14, Creatinine 0.80, Estim Creat Clear Calc 122.60, Est GFR (MDRD) Af Amer 132, Est GFR (MDRD) Non-Af 109, BUN/Creatinine Ratio 17.6, Glucose 118 H, Calcium 8.7, Total Bilirubin 0.50, AST 17, ALT 44, Alkaline Phosphatase 70, Total Protein 6.4, Albumin 4.1, Globulin 2.3, Albumin/Globulin Ratio 1.8 D/C Instructions Discharge Diet: No restrictions Weight Bearing Status: Full weight bearing Additional Activity Instructions: no heavy lifting or exertion Meaningful Use Info Meaningful Use Diagnoses (Choose all that apply): AMI AMI/Post PCI/Angioplasty Aspirin given w/in 24hrs of arrival?: Yes ASA at discharge?: Yes Antiplatelet Therapy at Discharge:: Yes Statins at discharge?: Yes Richi/ARB at discharge?: Yes Beta Latricia at discharge?: Yes Done w/ Acute NC measure.: Yes Documented LVEF (%): 55 Discharge Plan Admission Admit Date/Time: 11/06/21 14:36 Primary Reason for Your Visit: Non STEMI Attending Provider: Delfin Ambrocio Primary Care Provider: Black York Consulting Providers: Mateo White Discharge Orders/Prescriptions Prescriptions: New aspirin 81 mg Tablet,Delayed Release (Dr/Ec) 81 mg PO DAILY@0800 Qty: 0 RF: 0 atorvastatin 80 mg Tablet 80 mg PO QHS Qty: 30 RF: 0 lisinopril 10 mg Tablet 10 mg PO DAILY Qty: 30 RF: 0 metoprolol tartrate 25 mg Tablet 12.5 mg PO BID Qty: 30 RF: 0 Brilinta 90 mg Tablet 90 mg PO BID Qty: 60 RF: 0 Continued escitalopram oxalate [Lexapro] 10 mg tablet 20 mg PO DAILY RF: 0 fluticasone furoate 100 MCG blister with device 1 puff IH DAILY RF: 0 bupropion HCl 150 mg Tablet Sustained-Release 12 Hr 150 mg PO DAILY RF: 0 albuterol 90 mcg/actuation Aerosol 90 mcg INHALATION Q4H PRN PRN (Reason: sob) RF: 0 Referrals / Follow Up: Black York MD [Primary Care Provider] - Within 2 Weeks Mateo White MD [STAFF PHYSICIAN] - See Referral Note (as directed) Disposition Disposition (needs filled in before D/C Order can be placed): Home, Self Care Charges/Coding Visit Charges Inpatient E&M: 86642 [facility] Hosp
--- NOTE | 2021-11-08 10:52 | CASEMGMT ---
RN SHAMA NOTE: Pt being discharged home today. Per Dr Ambrocio, he has provided Brilinta savings card to pt. ANGELICA SESAY to room. Discussed Brilinta savings card and use. Questions answered. Pt and aware, if refills are not affordable, to discuss other options w/director of flight operations. They voice understanding. They voice no other discharge planning needs or concerns. Henrietta LADD RN CM
--- NOTE | 2021-11-08 13:10 | CHAPLAIN ---
Type of Pastoral Visit _x__ Initial Visit ___ Follow-up Visit ___ On-call Visit ___ General Patient Visit ___ Spiritual Assessment ___ Family Conference ___ Bereavement ___ Rapid Response ___ Code Blue ___ Other (describe below) Pastoral Care Referral From _x__ Patient ___ Family ___ Nurse ___ Physician ___ [place] Laborer ___ Formulator Compounder ___ Other (describe below) Sacrament/Intervention _x__ Active listening ___ Anointing ___ Holiness ___ Bereavement ___ Communion ___ Janice exploration ___ ___ Life review _x__ Prayer ___ Reconciliation ___ Sacrament of Sick ___ Supportive presence ___ Wedding ___ Other (describe below) Pastoral Comments patient and spouse report that situation is good and he is being discharged today; both are waiting for final word to go home; presence and offer of support given; pt accepts prayer for full recovery
--- NOTE | 2021-11-08 14:16 | NURSING ---
Reviewed charting with Valentin Denis RN
== END 2021-11-08 13:32 | disposition home or self-care (01) | DRG 247 ==
LOC: ED 09:01 → PCU 12:35
PROVIDERS: Internal Medicine Cardiovascular Disease; Admitting Provider Internal Medicine; Emergency Provider Student in an Organized Health Care Education/Training Program; PCP Family Medicine; Visit Provider Internal Medicine
DX: I21.A1 Myocardial infarction type 2 (principal); D86.9 Sarcoidosis, unspecified; I25.110 Atherosclerotic heart disease of native coronary artery with unstable angina pectoris; F41.9 Anxiety disorder, unspecified; F32.A Depression, unspecified; Z79.82 Long term (current) use of aspirin; Z79.899 Other long term (current) drug therapy
CPT/HCPCS: 36415; 71045; 80048; 80053; 84484; 85025; 92921; 92928; 93005; 93306; 93458; 94640; 97802; 99152; 99153; 99251; 99285; C1874; J7030; Q9957; Q9967; A4216; C1725; C1769; C1887; C1894; C8929; C9600; G0463

== ENCOUNTER 2021-11-28 10:27 | Observation (INO) | payer OTHER, SELFPAY ==
[2021-11-14 10:59] LABS: International Normalized Ratio 0.9; Partial Thromboplast Time 29.3 Seconds (24.1-36.2)
--- NOTE | 2021-11-23 18:02 | PCM.HP.BLA ---
History and Physical Date of Admission: 11/28/21 [facility] Medical Records Department [address] [place] [address] Consultation - Fslsuagghj89/05/22 1829#: [id number]:NAHED STEVENSRep #:[id number]: [id number] 51From: Mateo White MDPCP:Dr. Black York MD Status:ADM INLocation: [id number] Assessment & Plan Assessment/Plan (1) NSTEMI (non-ST elevated myocardial infarction): PLAN: The patient has abnormal cardiac enzymes/high-sensitivity troponin I levels concerning for an acute non-ST segment elevation PR. It is unclear at this time whether this is a type I event from underlying CAD versus a type II event being brought out from a non-CAD process. At the moment the patient is being monitored. He has been placed on medical management. He has undergone noninvasive evaluation. He has been recommended for further invasive evaluation with diagnostic cardiac catheterization. The cardiac catheterization procedure and risk were discussed with the patient. He was agreeable to this approach. (2) Chest pain: PLAN: The patient has a longstanding history of chest discomfort. He has undergone noninvasive valuation as noted in the past. At the present time based upon his ongoing clinical course and objective findings he has now been recommended for further invasive cardiovascular evaluation. This includes diagnostic cardiac catheterization. Depending upon the findings, if it does not appear the patient has angiographically significant CAD, then he may need to be considered for further non-CAD and/or noncardiac evaluation of his chest discomfort. This could include further evaluation for thromboembolic disease such as pulmonary emboli with laboratory studies and/or chest CT with IV contrast as well as additional nonvascular evaluation of chest discomfort. (3) Sarcoidosis: PLAN: The patient has a history of sarcoidosis. He states he was treated for this in the past. He has been undergoing reevaluation for this noninvasively with the aforementioned radiologic studies. He will need to continue evaluation care per his engine monitor for this concern. Addt'l Comments The patient's case was discussed and reviewed with the patient, the [facility] emergency department staff, and Dr. Ambrocio. This note was generated using a voice recognition system and there may be incorrect words, spelling or punctuation that were not noted when reviewing the office note prior to saving. HPI Consult Data Date of Consult: 11/06/21 HPI Narrative HPI Narrative: NAHED STEVENS, is a 51 year old white male who presents for cardiovascular consultation based upon concerns of chest pain and abnormal high-sensitivity troponin I levels superimposed upon a history of underlying pulmonary disease with reactive airway disease and sarcoidosis. The patient states that he has undergone evaluation in the past for concerning chest discomfort from a noninvasive standpoint which has been unremarkable. He notes that more recently he has been experiencing chest discomfort again which he describes as a burning sensation that radiates across his chest and down his left upper extremity. Today this discomfort became much more prominent. He presented to the emergency department for further evaluation. He was treated with nitroglycerin sublingual which she states relieved his burning chest discomfort sensation. His initial cardiac enzymes were negative and his initial ECG demonstrated no acute ECG changes. However a subsequent troponin I level was noted to have increased. Thus he was recommended for further evaluation as an inpatient. His subsequent troponin I levels continue to increase into the positive range. He denies any ongoing symptoms of acute orthopnea or PND or peripheral pitting edema. He denies any ongoing palpitations or episodes of near syncope/syncope. He states he has been recently undergoing evaluation by his engine monitor for recurrence of his sarcoidosis which was treated greater than 10 years ago with corticosteroid therapy. This evaluation included a noncontrast chest CT scan performed yesterday which was reported by radiology as being a normal unenhanced CT chest examination. He had a chest x-ray performed today which was also reported by radiology as being a normal x-ray examination of the chest. He underwent a transthoracic echocardiogram today. The results are noted below. He has been recommended based upon his symptoms and his abnormal troponin I levels for further evaluation of his coronary status with diagnostic cardiac catheterization. FORMERLY [facility], [facility]–1983 Medical History Asthma Chest pain Depression Difficulty balancing Fatigue Fever Knee pain Lung disease Migraines Sarcoidosis Sleep apnea SOB (shortness of breath) Home Medications escitalopram oxalate 10 mg tablet 20 mg PO DAILY 08/13/18 [History Last Taken Unknown] fluticasone furoate 1 puff IH DAILY 03/22/19 [History Last Taken Unknown] albuterol 90 mcg INHALATION Q4H PRN PRN 11/06/21 [History Last Taken Unknown] bupropion HCl 150 mg PO DAILY 11/06/21 [History Last Taken Unknown] Allergy/AdvReac Type Severity Reaction Status Date / Time Penicillins Allergy Unknown Verified 11/06/21 07:49 Family History (Updated 11/06/21 @ 16:01 by Néstor MOCTEZUMA) Father Asthma Diabetes Heart disease Hypertension Mother No problems noted. Other Cancer Surgical History History of biopsy History of colonoscopy (~03/24/19) Social History Smoking Status: Never smoker alcohol intake: current alcohol intake frequency: a few times a week Alcohol type: hard liquor substance use type: does not use caffeine: Yes frequency: does not exercise ROS Constitutional Constitutional: Reports as per HPI Eyes Eyes: Reports as per HPI ENT HEENT: Reports as per HPI Cardiovascular Cardiovascular: Reports chest pain and chest pain at rest Respiratory/Chest Respiratory/Chest: Reports as per HPI Gastrointestinal Gastrointestinal: Reports as per HPI Genitourinary Genitourinary: Reports as per HPI Musculoskeletal Musculoskeletal: Reports as per HPI Integumentary Integumentary: Reports as per HPI Neurologic Neurologic: Reports as per HPI Psychiatric Psychiatric: Reports as per HPI Physical Exam Const alert, oriented x3 and no apparent distress Orientation / Consciousness: awake HEENT normocephalic, head/scalp atraumatic and hearing grossly normal bilaterally Eyes PERRL, EOMs intact bilaterally and conjunctivae normal Neck full ROM, supple and no JVD Resp clear to auscultation bilaterally Cardio regular rate, regular rhythm, S1 normal heart sound and S2 normal heart sound GI normal to inspection, nondistended, normoactive bowel sounds Extremity no pedal edema Skin no rashes or lesions noted Neuro oriented x3, moves all extremities, no focal motor deficits and no sensory deficits noted Psych mental status grossly normal Risk Stratification Risk Stratification Applicable: Yes Age >/= 65: No >/= 3 CAD Risk Factors (HTN, HLD, DM, family hx of CAD, or current smoker): No Aspirin Use in the Past 7 Days: No Severe Angina (>/= episodes in 24 hours): Yes EKG ST Changes >/= 0.5mm: No Positive Cardiac Marker: Yes FAVIO Risk Stratification Score: 2 FAVIO % Risk: 8% Risk Procedure Criteria Type of Procedure Procedure Type: Elective Elective Risks - COVID COVID Risk Discussion: The surgeon/proceduralist and patient have discussed in detail the risk of exposure to and/or potential harm posed by the COVID-19 virus with having a surgery/procedure at this time versus the risk of delaying the surgery/procedure. It is not possible to know either the risk of delaying the surgery or procedure or chance of getting an infection with perfect accuracy, but a joint decision was made between the patient and the surgeon/proceduralist to proceed at this time with the scheduled surgery/procedure as indicated on the consent form. Objective Data Vital Signs: Vital Signs Temp Pulse Resp BP Pulse Ox 98.2 F 78 16 138/92 H 95 11/06/21 18:00 11/06/21 18:00 11/06/21 18:00 11/06/21 18:00 11/06/21 18:00 Oxygen Delivery Method Room Air Weight: 229 lb 8.019 oz Body Mass Index (BMI) 31.1 Intake & Output:Intake and Output for Last 24 Hours 11/04/21 11/05/21 11/06/21 23:59 23:59 23:59 Intake Total 650 / 650 Balance 650 / 650 Lab / Micro Data Result Diagrams: 11/06/21 07:30 document embedded image 11/06/21 07:30 document embedded image Labs:Laboratory Results - last 24 hr 11/06/21 07:30: WBC 6.2, RBC 5.53, Hgb 16.0, Hct 46.2, MCV 83.5, MCH 28.9, MCHC 34.6, RDW Std Deviation 37.2, RDW Coeff of Jose 12.2, Plt Count 169, MPV 10.7, Immature Gran % (Auto) 0.600, Neut % (Auto) 68.3, Lymph % (Auto) 21.9, [place] % (Auto) 8.2, Eos % (Auto) 0.8, Baso % (Auto) 0.2, Absolute Neuts (auto) 4.2, Absolute Lymphs (auto) 1.36, Nucleated RBC % 0 11/06/21 07:30: Sodium 139, Potassium 4.1, Chloride 108 H, Carbon Dioxide 27.0, Anion Gap 4 L, BUN 17, Creatinine 0.77, Estim Creat Clear Calc 123.60, Est GFR (MDRD) Af Amer 137, Est GFR (MDRD) Non-Af 113, BUN/Creatinine Ratio 22.0 H, Glucose 116 H, Calcium 8.7, Troponin I High Sens 3 11/06/21 09:35: Troponin I High Sens 45 11/06/21 13:42: Troponin I High Sens 201 H* Cardiology Labs/Tests 11/06/21 07:30: WBC 6.2, RBC 5.53, Hgb 16.0, Hct 46.2, MCV 83.5, MCH 28.9, MCHC 34.6, Plt Count 169, MPV 10.7, Immature Gran % (Auto) 0.600, Neut % (Auto) 68.3, Lymph % (Auto) 21.9, [place] % (Auto) 8.2, Eos % (Auto) 0.8, Baso % (Auto) 0.2, Absolute Neuts (auto) 4.2, Nucleated RBC % 0 11/06/21 07:30: Sodium 139, Potassium 4.1, Chloride 108 H, Carbon Dioxide 27.0, Anion Gap 4 L, BUN 17, Creatinine 0.77, Est GFR (MDRD) Af Amer 137, Est GFR (MDRD) Non-Af 113, BUN/Creatinine Ratio 22.0 H, Glucose 116 H, Calcium 8.7 Rhythm: Sinus rhythm EKG: Sinus rhythm ECHO: As noted below Stress Test: 08-31-2018 Stress Test Report Exercise stress test. 48-year-old male with a history of chest pain. Stress protocol: Resting EKG demonstrates normal sinus rhythm with a rate of 66 bpm normal intervals are noted resting blood pressure 128/84 mmHg. The patient exercised according to regular Steven protocol for total duration of 11 minutes completing 2 minutes into stage IV of the Steven protocol. The maximum heart rate attained was 162 bpm which was 93% of maximum predicted heart rate the maximum workload was 13.4 metabolic equivalents. At rest there were no ST or T wave changes noted suggest ischemia peak exercise upsloping ST changes were only were noted with normally the criteria for ischemia. No clinical angina was noted. The test was terminated due to leg fatigue. Resting blood pressure 128/84 with a peak blood pressure 170/90. Conclusion: Exercise stress test with no EKG criteria for ischemia at a high workload. No clinical angina noted. No arrhythmias noted. Radiography Diagnostic Testing:Radiology Impression Chest X-Ray 11/06/21 08:11 IMPRESSION: Normal x-ray examination of the chest. Electronically Signed: Dylan Lobo MD at 9:01 EDT , Echocardiogram 11/06/21 12:56 Interpretation Summary The study was technically difficult. Contrast injection was performed. Left ventricular systolic function is normal. The estimated ejection fraction is 65 %. Mild concentric left ventricular hypertrophy. Trivial mitral valve insufficiency. Trivial tricuspid valve insufficiency. Right ventricular systolic pressure estimated to be 34 mmHg. No evidence for diastolic dysfunction. Ordering Physician: Lolly^Delfin^^^ Referring Physician: Sanjay York MD Performed By: Radha Arnold RCS 11/06/21 1839 <Electronically signed by Mateo White MD> Cosigner Signature (if applicable): CC: Dr. Black York MD; Dr. Mateo White MD; Dr. Aston Hayes MD~Signed Assessment & Plan Addt'l Comments Addendum: The patient underwent diagnostic cardiac catheterization on 11-07-2021. The results are noted below. CONCLUSIONS Elevated Left Ventricular End Diastolic Pressure Segmented LV systolic dysfunction- Mild LVEF: by LV gram 55 % [facility] Mult[facility] CAD RECOMMENDATIONS Risk factor modification Medical therapy Referred for immediate PCI DESCRIPTION OF PROCEDURE The patient arrived to the procedure lab. The risks and benefits of the procedure as well as a full description of our services here and current unavailability of surgical backup were fully explained to the patient and/or their significant other prior to the catheterization. The Timeout was completed, verifying the correct patient and procedure. The patient's procedural site was prepped and draped in the usual fashion. Local anesthetic was given subcutaneously to right radial region with Lidocaine 2%. Using a modified Seldinger technique, arterial access was obtained via the right radial artery, a 6Fr sheath was inserted. Left Coronary Artery selective angiography was performed in multiple views using a 5 Fr. 4.0 [place] catheter. Right Coronary Artery selective angiography was then performed in multiple views using a 5 Fr. 4.0 [place] catheter. Left Ventriculography was performed in TEJEDA projection using a 5 Fr. Pigtail catheter. LV to AO pullback pressures were then recorded.The arterial sheath was pulled and a TR Band was applied for hemostasis CORONARY ANGIOGRAPHY DOMINANCE: Right Dominant LEFT HEART ASSESSMENT Left Ventricular Ejection Fraction: by LV Gram 55 % Anterior Hypokinesis Elevated Left Ventricular End Diastolic Pressure LEFT MAIN: Angiographically normal LEFT ANTERIOR DESCENDING ARTERY: PROX LAD: Mild luminal irregularities MID LAD: 95 % Stenosis CIRCUMFLEX ARTERY: Mild luminal irregularities MID CIRC: diffuse: eccentric: 25 % Stenosis, 50 % Stenosis RIGHT CORONARY ARTERY: Mild luminal irregularities DISTAL RCA: 50 % Stenosis, eccentric: 85 % Stenosis AORTIC ROOT: Angiographically normal COMPLICATIONS No Complications The patient underwent subsequent PCI. The results are noted below. PCI Cardiac Cath Report PCI Report: Procedure performed; 1. Successful PCI of the culprit subtotal 99% stenosis of the mid LAD With predilatation using 2 x 12 mm balloon, followed by placement of drug-eluting stent 3 x 22 mm [facility] Postdilated using 3.5 x 50 mm NC Emerge balloon With reduction of stenosis from 99% to 0/no residual stenosis and improvement of FAVIO flow from FAVIO II to FAVIO-3 flow. 2. PTCA of a small sidebranch D2/second diagonal using 2 x 15 mm emerge balloon. Consent; Risk and benefit of procedure explained in detail to the patient elected to proceed informed consent obtained. Preprocedure diagnosis; Patient is a 51-year-old seen and evaluated by his primary vp cardiovascular service line Dr. White as he had symptoms of chest pain with a clinical diagnosis of CAD/non-ST elevation PR had abnormally high sensitivity troponin levels. Patient known to have a pulmonary disease with reactive airway disease and sarcoidosis. Cardiac cath findings discussed his left main is normal angiographically bifurcating into LAD and left circumflex The culprit lesion is mid LAD which is subtotal 99 involving a small side branch less than 2 mm which is tight 90% of the sidebranch with a FAVIO flow in the LAD. The left circumflex is moderate to large in size with a diffuse proximal to mid circumflex atherosclerosis of around 50 to 60% RCA is large dominant with the 370-75% stenosis involving the distal RCA which bifurcates into posterolateral and RPDA. Had mild anteroapical hypokinesia with mildly reduced LV systolic function on the ventriculogram. Based on the clinical presentation we will proceed with a PCI of the culprit lesion which is the mid LAD with the plan of angioplasty of the sidebranch. Interventional equipment used; 1. 6 [place] 3.5 EBU guide catheter 2. 0.014 BMW universal straight 190 cm guidewire. 3. 0.014 run-through extra floppy 180 cm straight wire. 4. 2 x 12 mm emerge MR balloon 5. 3 x 22 mm drug-eluting stent/[facility] Medication used in the Benzene Still Utility Operator Patient initially was given 3000 units of heparin through the right radial sheath by Dr. White and we gave him 7000 units of heparin IV ACT level was checked. Patient was given Brilinta 180 mg in the Benzene Still Utility Operator as well as an aspirin Symptoms of chest pain is mild Procedure in detail; Under fluoroscopic guidance we will proceed with the 6 [place] 3.5 EBU guide advanced ascending aorta cannulated the left main without difficulty Then we used a run-through wire across the lesion in the subtotal LAD predilated the lesion followed by placement of drug-eluting stent and postdilated using 3.5 x 50 mm NC balloon and achieved an excellent result with no evidence of proximal or distal dissection noted worsening of the sidebranch which is a small branch then we proceed with the BMW wire across the lesion and through the struts of the stents and then dilate the lesion at the ostium of the sidebranch which is a small less than 2 mm. Following this all catheters removed hemostasis maintained with placement of TR band to the right radial artery arteriotomy site with no complication in the Benzene Still Utility Operator Recommendation plan 1. Patient to continue on DAPT Brilinta/aspirin for 1 year and to continue to follow-up with his primary vp cardiovascular service line Dr. White 2. He had lesion in the distal RCA and this can be set up as an elective PCI of the distal RCA 2 - 3 weeks 3. Had a diffuse intermediate lesion in the left circumflex and this can be evaluated further with IFR in the Benzene Still Utility Operator. Pernell Mahan MD,[facility] The patient is returning for a staged cardiac catheterization/intervention/PCI of the RCA system as noted above under the direction of Dr. Mahan of interventional cardiology. The patient's case was discussed and reviewed with the patient. The procedure and risk were discussed. The patient was agreeable to this approach. I have re-examined the patient. There are no clinical changes since date of exam
[2021-11-26 07:25] VITALS: BMI 29.8
[2021-11-28] VITALS (13 sets, daily range): BP systolic 109–121; BP diastolic 70–97; PULSE 59–72; RESP 18–20; TEMP 36.4–36.9; O2SAT 97–100
--- NOTE | 2021-11-28 10:35 | PCIREPORT_ITS ---
PCI Cardiac Cath Report PCI Report: 1 successful PCI of distal RCA diffuse 80% with predilatation, followed by placement of drug-eluting stent SARA/[place]iro 3.5 X 22 mm With reduction of stenosis to 0% and maintenance of FAVIO-3 flow pre and post procedure 2. Placement of 6 [place] sheath in the right common femoral vein/hemostasis maintained with manual pressure. 3. TR band applied to right radial artery arteriotomy site. Preprocedure diagnosis; 51-year-old patient with history of CAD non-ST elevation [place] Patient had PCI and stent of LAD and was protein today for elective PCI of the distal RCA He was on dual antiplatelet therapy with Brilinta and aspirin and he has been very compliant with his medication. Other medical problem include history of asthma History of sleep apnea. Consent; Risk and benefit of the procedure explained in detail to the patient elected to proceed informed consent obtained. Access; 6 Luxembourger sheath/Terumo placed in the right radial artery Had a vasovagal event in the Vessel Slag Worker requiring 6 [place] sheath placed in the right common femoral vein Does not require temporary pacer. Medication used in the Vessel Slag Worker; 1. Cocktail of heparin nitro was given through the right radial artery sheath 2. 6000 IV heparin 3. 200 mcg nitroglycerin intracoronary 4. Atropine 0.5 mg Interventional equipments; 1. 6 [place] JR4 guide 2. 0.014 extra floppy 180 cm guidewire run-through 3. 2 x 15 mm emerge MR balloon 4. 3.5 x 22 mm drug-eluting stent/O[place] Procedure in detail; Patient brought to the Vessel Slag Worker in fasting state Right radial artery area prepped and draped in the usual sterile fashion Under fluoroscopic guidance we will proceed with the 6 [place] JR4 guide advanced sending aorta cannulated the right coronary ostium without difficulty and then will proceed with the guidewire across the lesion in the distal RCA, followed by predilatation Followed by placement of a drug-eluting stent Recommendations; 1. Patient to continue on DAPT Brilinta 90 mg twice daily in addition to low- dose aspirin 81 mg daily for 1 year 2. Patient to follow-up with the primary rn neonatal Dr. White for continuation of cardiac care plan. Patient is stable clinically no further episode of chest pain and no complication in the Vessel Slag Worker.
--- NOTE | 2021-11-28 10:45 | EKG12_ITS ---
Test Reason : POST ST Blood Pressure : / mmHG Vent. Rate : 062 BPM Atrial Rate : 062 BPM P-R Int : 174 ms QRS Dur : 100 ms QT Int : 408 ms P-R-T Axes : 050 -11 003 degrees QTc Int : 414 ms Normal sinus rhythm Normal ECG Confirmed by GEOVANI GARRIDO, MELLISSA ([id number]), editor book DUKE ALVAREZ ([id number]) on 11/30/2021 10:37:16 AM Referred By: Pernell Mahan Confirmed By:MELLISSA OLIVO MD
[2021-11-28] MEDS: 0.9% Normal Saline 1,000 ML 100 ML IV (11:50)
--- NOTE | 2021-11-28 12:29 | CRPHASE1_ITS ---
Patient Communication Former Patient:: Phase I PHII Cardiac Rehab Discussed with Patient:: No - Staged Procedure, PT educated on last visit Guide to Cardiac Rehab Given to Patient:: No - PT received with last visit Cardiac Rehab Facility Choice List Given to Patient:: No - PT received at last visit Choice Program [facility] CR PHII:: Communication Given to CR Light Fixture Servicer:: Dr. Mahan Refer Phase II Cardiac Rehab:: Yes Sessions:: 36 sessions - 3 days/wk, 12 weeks Cardiac Rehabilitation Info Cardiac Rehabilitation Program Information: Cardiac Rehabilitation is important for patients like you who are recovering from a heart problem. Cardiac rehabilitation programs are recognized as integral to the continued care of the patient with coronary heart disease. The cardiac rehabilitation program is designed to optimize a patient's physical, psychological, and social functioning. Health child care attendant school work in cardiac rehabilitation programs and assist you with getting the treatments you need to get stronger and healthier - like exercise, healthy eating habits, and medications. Cardiac rehabilitation has been show to help people with heart problems live longer and have better life enjoyment than people who do not go to cardiac rehabilitation. Please contact the Cardiac Rehabilitation Program at [facility] at in two weeks if you have not heard from them.
--- NOTE | 2021-11-28 12:31 | CRPH1.INSTRU ---
General Education CAD and cardiac anatomy and function:: Patient communicates acknowledgment Explanation of diagnoses and procedures:: Patient communicates acknowledgment Sign/Symptoms of SC:: Patient communicates acknowledgment Antiplatelet therapy: Patient communicates acknowledgment Proper use of NTG-SL: Patient communicates acknowledgment Emergency procedures and activation of EMS: Patient communicates acknowledgment Compliance of all prescribed medications: Patient communicates acknowledgment Smoking Patient Nicotine/Smoking Risk Factors Are:: Non-smoker Dyslipidemia Patient Dyslipidemia Risk Factors Are:: Total Cholesterol, Triglycerides, HDL, LDL Recommendations Include:: Lipid profile not available Dyslipidemia Response Code:: Patient communicates acknowledgment Overweight/Obesity Patient Overweight/Obesity Risk Factors Are:: Overweight = 26-29 Recommendations Include:: Weight loss of 5-10%, Reduced calorie diet, Exercise 5-7 times/week Overweight/Obesity:: Patient communicates acknowledgment Hypertension Recommendations Include:: Maintain BP <130/85, Decrease/maintain normal body weight Hypertension:: Patient communicates acknowledgment Heart Disease Patient Heart Disease Risk Factors Are:: Previous cardiac event Heart Disease Response Code:: Patient communicates acknowledgment Diabetes Patient Diabetes Risk Factors Are:: No documented hx of diabetes Sedentary Patient Sedentary Risk Factors Are:: Lack of regular exercise Recommendations Include:: Aerobic exercise 5-7 times/week for 20-30 minutes continuously, Benefits of regular exercise, Discussed home walking program, Monitored Outpatient Cardiac Rehab Sedentary Response Code:: Patient communicates acknowledgment Stress Recommendations Include:: Identification of stressors, and assessment of coping skills, Stress management techniques Stress Response Code:: Patient communicates acknowledgment
--- NOTE | 2021-11-28 13:00 | NURSING ---
Pt up to
--- NOTE | 2021-11-28 13:00 | NURSING ---
Pt up to ambulate at this time post heart cath and stent. R. groin site is clean and intact, no bleeding noted. Tolerated well.
[2021-11-28] MEDS: Acetaminophen 325 MG Tablet 650 MG PO (17:58)
--- NOTE | 2021-11-28 18:40 | NURSING ---
Reviewed charting with Valentin Denis RN
[2021-11-28] MEDS: Atorvastatin Calcium 80 MG Tablet PO (21:24)
[2021-11-28] MEDS: Metoprolol Tartrate 25 MG Tablet 12.5 MG PO (21:24)
[2021-11-28] MEDS: TICAGRELOR 90 MG TABLET PO (21:24)
[2021-11-29 03:00] VITALS: PULSE 60
[2021-11-29 03:39] VITALS: BP 113/74; PULSE 65; RESP 18; TEMP 35.9; O2SAT 99
[2021-11-29 06:05] LABS: Absolute Lymphocyte Count 1.14 X10^3/uL (0.83-4.51); Absolute Neutrophil Count 6.1 X10^3/uL (2.0-7.7); Basophil# 0.04 X10^3/uL; Basophil% 0.5 % (0-1); Eosinophils% 1.3 % (0-5); Hematocrit 42.4 % (40-54); Hemoglobin 14.3 g/dL (13.0-16.5); Lymphocyte # 1.14 X10^3/ul (0.83-4.51); Lymphocyte % 14.4 % (19-41); Mean Corp Hgb Conc 33.7 g/dL (32-36); Mean Platelet Vol. 11.2 fl (6.2-12.0); Monocyte# 0.53 X10^3/uL; Monocyte% 6.7 % (0-10); NRBC Flagged by Analyzer 0 % (0-5); Neutrophil # 6.05 X10^3/uL (2.7-7.7); Neutrophil % 76.6 % (47-70); Platelet Count 178 K/mm3 (150-450); RBC Distribution Width CV 12.4 % (11.6-14.6); RBC Distribution Width SD 38.5 fl (35.1-43.9); Red Blood Count 4.93 M/mm3 (4.6-6.2); White Blood Count 7.9 K/mm3 (4.4-11.0)
[2021-11-29 06:31] LABS: ALB/GLOB Ratio 1.4 RATIO (0.9-2.4); AST(SGOT) 21 U/L (15-37); Alanine Aminotransfer ALT/SGPT 56 U/L (16-61); Albumin, Serum 3.6 g/dL (3.2-5.0); Alkaline Phosphatase 75 U/L (45-117); Anion Gap 6 (5-15); BUN 16 mg/dL (7-18); BUN/Creat Ratio 20.4 RATIO (10-20); Calcium,Total 8.7 mg/dL (8.5-10.1); Chloride 111 mmol/L (98-107); Creatinine, Serum 0.78 mg/dL (0.70-1.30); EST Glomerular Filtration Rate 112 mL/min (>60); Est Glom Filt Rate - Afr Amer 135 mL/min (>60); Estimated Creatinine Clearance 125.74 ml/min; Globulin 2.5 g/dL (2.2-4.2); Glucose 100 mg/dL (74-106); Potassium 4.1 mmol/L (3.5-5.1); Protein, Total 6.1 g/dL (6.4-8.2); Sodium Level 140 mmol/L (136-145)
[2021-11-29 07:31] VITALS: PULSE 79
[2021-11-29 07:39] VITALS: O2SAT 96
--- NOTE | 2021-11-29 07:47 | PN.CARD_ITS ---
Subjective Subjective The patient is awake and alert. He states he feels good . He denies symptoms of ongoing angina pectoris. There is been no evidence of acute CHF or pulmonary edema. He has had no concerns of palpitations. There has been no near-syncope or syncope. He states his only concern has been with respect to his medications and his MORENO inhibitor and an associated cough. He states his PCP has provided an alternative for him although he does not recall the name of the alternative medication at this time. Objective Data Vital Signs: Vital Signs Temp Pulse Resp BP Pulse Ox 96.6 F L 65 18 113/74 96 11/29/21 03:39 11/29/21 03:39 11/29/21 03:39 11/29/21 03:39 11/29/21 07:39 Oxygen Delivery Method Room Air Weight: 220 lb Body Mass Index (BMI) 29.8 Intake & Output: Intake and Output for Last 24 Hours 11/27/21 11/28/21 11/29/21 23:59 23:59 23:59 Intake Total 1420 / 1780 360 / 360 Output Total 0 / 0 Balance 1420 / 1780 360 / 360 Lab / Micro Data Result Diagrams: 11/29/21 05:10 11/29/21 05:10 Labs: Laboratory Results - last 24 hr 11/29/21 05:10: WBC 7.9, RBC 4.93, Hgb 14.3, Hct 42.4, MCV 86.0, MCH 29.0, MCHC 33.7, RDW Std Deviation 38.5, RDW Coeff of Jose 12.4, Plt Count 178, MPV 11.2, Immature Gran % (Auto) 0.500, Neut % (Auto) 76.6 H, Lymph % (Auto) 14.4 L, [place] % (Auto) 6.7, Eos % (Auto) 1.3, Baso % (Auto) 0.5, Absolute Neuts (auto) 6.1, Absolute Lymphs (auto) 1.14, Nucleated RBC % 0 11/29/21 05:10: Sodium 140, Potassium 4.1, Chloride 111 H, Carbon Dioxide 23.0, Anion Gap 6, BUN 16, Creatinine 0.78, Estim Creat Clear Calc 125.74, Est GFR (MDRD) Af Amer 135, Est GFR (MDRD) Non-Af 112, BUN/Creatinine Ratio 20.4 H, Glucose 100, Calcium 8.7, Total Bilirubin 0.80, AST 21, ALT 56, Alkaline Phosphatase 75, Total Protein 6.1 L, Albumin 3.6, Globulin 2.5, Albumin/Globulin Ratio 1.4 Cardiology Labs/Tests 11/29/21 05:10: WBC 7.9, RBC 4.93, Hgb 14.3, Hct 42.4, MCV 86.0, MCH 29.0, MCHC 33.7, Plt Count 178, MPV 11.2, Immature Gran % (Auto) 0.500, Neut % (Auto) 76.6 H, Lymph % (Auto) 14.4 L, [place] % (Auto) 6.7, Eos % (Auto) 1.3, Baso % (Auto) 0.5, Absolute Neuts (auto) 6.1, Nucleated RBC % 0 11/29/21 05:10: Sodium 140, Potassium 4.1, Chloride 111 H, Carbon Dioxide 23.0, Anion Gap 6, BUN 16, Creatinine 0.78, Est GFR (MDRD) Af Amer 135, Est GFR (MDRD) Non-Af 112, BUN/Creatinine Ratio 20.4 H, Glucose 100, Calcium 8.7, Total Bilirubin 0.80 Rhythm: Sinus rhythm EKG: Sinus rhythm; no acute ECG changes Physical Exam Const alert, oriented x3, no apparent distress and healthy appearing Orientation / Consciousness: awake HEENT normocephalic, head/scalp atraumatic and hearing grossly normal bilaterally Eyes PERRL, EOMs intact bilaterally and conjunctivae normal Neck full ROM, supple and no JVD Resp clear to auscultation bilaterally Cardio regular rate, regular rhythm, S1 normal heart sound and S2 normal heart sound GI normal to inspection, nondistended, normoactive bowel sounds Extremity no pedal edema Peripheral Pulses: Yes radial pulses present right (No bruits: No hematoma) 2+ Skin no rashes or lesions noted Psych mental status grossly normal Assessment & Plan Assessment/Plan (1) Atherosclerotic heart disease of [place] coronary artery without angina pectoris: PLAN: The patient appears to be without acute symptoms at this time. He will continue medical therapy as deemed appropriate. (2) Presence of stent in coronary artery: PLAN: The patient is now status post his staged PCI. He appears to be stable at this time. He will continue medical management. He will continue with outpatient cardiovascular follow-up which can include outpatient cardiac rehabilitation. Addt'l Comments The patient's case was discussed and reviewed with the patient and has also been previously discussed with Dr. Mahan of Interventional Cardiology. This note was generated using a voice recognition system and there may be incorrect words, spelling or punctuation that were not noted when reviewing the office note prior to saving. Procedure Criteria Type of Procedure Procedure Type: Elective Elective Risks - COVID COVID Risk Discussion: The surgeon/proceduralist and patient have discussed in detail the risk of exposure to and/or potential harm posed by the COVID-19 virus with having a surgery/procedure at this time versus the risk of delaying the surgery/procedure. It is not possible to know either the risk of delaying the surgery or procedure or chance of getting an infection with perfect accuracy, bu t a joint decision was made between the patient and the surgeon/proceduralist to proceed at this time with the scheduled surgery/procedure as indicated on the consent form.
[2021-11-29 08:54] VITALS: BP 124/72; PULSE 68; RESP 12; TEMP 36.8; O2SAT 98
[2021-11-29] MEDS: Aspirin E.C. 81 MG Tablet PO (08:58)
[2021-11-29 08:59] VITALS: BP 124/72; PULSE 68
[2021-11-29] MEDS: Metoprolol Tartrate 25 MG Tablet 12.5 MG PO (08:59)
[2021-11-29] MEDS: buPROPion (XL) 150 MG TABLET.XL PO (08:59)
[2021-11-29] MEDS: Escitalopram Oxalate 20 MG Tablet PO (08:59)
[2021-11-29] MEDS: TICAGRELOR 90 MG TABLET PO (08:59)
--- NOTE | 2021-11-29 10:00 | EKG12_ITS ---
Test Reason : Blood Pressure : / mmHG Vent. Rate : 070 BPM Atrial Rate : 070 BPM P-R Int : 174 ms QRS Dur : 100 ms QT Int : 402 ms P-R-T Axes : 041 -21 026 degrees QTc Int : 434 ms Normal sinus rhythm Normal ECG Confirmed by GEOVANI GARRIDO, MELLISSA ([id number]), photography editor DUKE ALVAREZ ([id number]) on 11/30/2021 10:34:35 AM Referred By: Pernell Mahan Confirmed By:MELLISSA OLIVO MD
--- NOTE | 2021-11-29 10:42 | PCM.DC ---
Discharge Instructions Follow Up Care Test Results: Test results from this visit will be discussed in further detail at your follow-up appointment, if applicable. Discharge Plan Admission Admit Date/Time: 11/28/21 10:27 Primary Reason for Your Visit: stagged PCI Attending Provider: Pernell Mahan Primary Care Provider: Black York Consulting Providers: Mateo White Instructions Forms: Work Excuse Additional Instructions / Restrictions: Do not lift anything greater than 10 lbs for 3 days You can not stop your brilinta for at least one year You may return to work Friday12/03/2021 Discharge Orders/Prescriptions Prescriptions: Continued escitalopram oxalate [Lexapro] 10 mg tablet 20 mg PO DAILY RF: 0 fluticasone furoate 100 MCG blister with device 1 puff IH DAILY RF: 0 albuterol 90 mcg/actuation Aerosol 90 mcg INHALATION Q4H PRN PRN (Reason: sob) RF: 0 bupropion HCl 150 mg tablet extended release 24 hr 150 mg PO DAILY RF: 0 Discontinued lisinopril 10 mg Tablet 10 mg PO DAILY Qty: 30 RF: 0 No Action metoprolol tartrate 25 mg tablet 12.5 mg PO BID Qty: 90 RF: 3 Brilinta 90 mg tablet 90 mg PO BID Qty: 180 RF: 3 atorvastatin 80 mg tablet 80 mg PO QHS Qty: 90 RF: 3 aspirin 81 mg tablet,delayed release (DR/EC) 81 mg PO DAILY@0800 Qty: 90 RF: 3 Referrals / Follow Up: Black York MD [Primary Care Provider] - Laurel Miles PA [PHYSICIAN VP INFORMATICS] - Disposition Disposition (needs filled in before D/C Order can be placed): Home, Self Care
--- NOTE | 2021-11-29 10:55 | PHA.DC.MR ---
Pharmacy Service has performed discharge medication reconciliation for this patient. The patient's discharge medication list was reviewed for discrepancies and discrepancies were resolved. Home Medications escitalopram oxalate 10 mg tablet 20 mg PO DAILY 08/13/18 fluticasone furoate 1 puff IH DAILY 03/22/19 albuterol 90 mcg INHALATION Q4H PRN PRN 11/06/21 bupropion HCl 150 mg PO DAILY 11/28/21 aspirin 81 mg tablet,delayed release 81 mg PO DAILY@0800 #90 tab 11/29/21 atorvastatin 80 mg tablet 80 mg PO QHS #90 tab 11/29/21 metoprolol tartrate 25 mg tablet 12.5 mg PO BID #90 tab 11/29/21 ticagrelor 90 mg tablet 90 mg PO BID #180 tab 11/29/21
== END 2021-11-29 10:13 | disposition home or self-care (01) ==
LOC: PCU 11:16
PROVIDERS: Admitting Provider Internal Medicine Cardiovascular Disease; PCP Family Medicine; Referring Provider Internal Medicine Interventional Cardiology; Visit Provider Internal Medicine Interventional Cardiology
DX: I25.10 Atherosclerotic heart disease of native coronary artery without angina pectoris (principal); R55 Syncope and collapse; Z79.82 Long term (current) use of aspirin; D86.9 Sarcoidosis, unspecified; J45.909 Unspecified asthma, uncomplicated; F32.A Depression, unspecified; G47.30 Sleep apnea, unspecified; Z79.899 Other long term (current) drug therapy; Z79.51 Long term (current) use of inhaled steroids
CPT/HCPCS: 36415; 80053; 85025; 85610; 85730; 92928; 93005; 96360; 96361; 99152; 99153; 99218; C1874; J7030; J7040; Q9967; C1725; C1769; C1887; C1894; C9600; G0378

== ENCOUNTER → 2022-02-19 | Outpatient (CLI) | payer OTHER, SELFPAY ==
--- NOTE | 2022-02-19 08:56 | STRESSREP_ITS ---
Stress Test Report Date: 02-19-2022 Procedure: Exercise tolerance test/imaging study Indications: Chest pain; CAD; PCI Consent: Per the patient Procedure: The patient exercised on a Steven protocol for 10 minutes and 30 seconds completing Stage III and 1 minute and 30 seconds of Stage IV achieving a peak heart rate of 155 bpm (89% predicted maximal heart rate) with a peak blood pressure 160/70 mmHg and a peak MET capacity of 13 METs. The baseline ECG demonstrated normal sinus rhythm. The peak exercise ECG demonstrated somatic/motion artifact with no obvious ECG changes. There was an isolated PVC at peak exercise. The functional capacity was considered good. There was no complaint of chest discomfort during exercise or recovery. The examination was discontinued secondary to dyspnea. Impression: 1. Technically adequate (percent predicted maximal heart rate greater than 85%) exercise tolerance test 2. Peak exercise ECG with somatic/motion artifact with no obvious ECG changes 3. There was an isolated PVC at peak exercise 4. Nuclear images pending Myocardial perfusion imaging study: Technique: The patient was injected with 14.6 mCi of technetium 99m Cardiolite and subsequently rest SPECT Cardiolite nuclear imaging was obtained in the horizontal long, vertical long, and short axis views. The patient exercised on a Steven protocol for 10 minutes and 30 seconds completing Stage III and 1 minute and 30 seconds of Stage IV achieving a peak heart rate of 155 bpm (89% predicted maximal heart rate) with a peak blood pressure 160/70 mmHg and a peak MET capacity of 13 METs. The patient was injected with 44.3 mCi of technetium 99m Cardiolite and subsequently stress SPECT Cardiolite nuclear imaging was obtained in the horizontal long, vertical long, and short axis views. A gated Cardiolite study at peak stress was obtained. Interpretation: Rest and stress SPECT Cardiolite nuclear imaging status post realignment, normalization, and attenuation correction, demonstrates the appearance of relative uniform tracer uptake and myocardial perfusion appearing within normal limits. There is end systolic thickening and brightening. The gated Cardiolite study demonstrates myocardial thickening and inward wall motion. The reported LVEF is 79%. Impression: 1. Rest and stress SPECT Cardiolite nuclear imaging demonstrate relative uniform tracer uptake and myocardial perfusion appearing within normal limits. 2. The gated Cardiolite study reports an LVEF of 79%. This note was generated with [employer] software. It may contain incorrect words, spelling, and punctuation that were not noted in checking the note before signing.
== END | disposition home or self-care (01) ==
LOC: CVS 06:01
PROVIDERS: PCP Family Medicine; Referring Provider Internal Medicine Cardiovascular Disease; Visit Provider Internal Medicine Cardiovascular Disease
DX: R07.9 Chest pain, unspecified (principal); R06.02 Shortness of breath; I25.10 Atherosclerotic heart disease of native coronary artery without angina pectoris; E78.5 Hyperlipidemia, unspecified; Z95.5 Presence of coronary angioplasty implant and graft
CPT/HCPCS: 78452; 93017; A9500; A4216

== ENCOUNTER → 2022-02-28 | Outpatient (CLI) | payer OTHER, SELFPAY ==
[2022-02-28 10:24] LABS: Hematocrit 44.1 % (40-54); Hemoglobin 15.1 g/dL (13.0-16.5); Mean Corp Hgb Conc 34.2 g/dL (32-36); Mean Corpuscular Hgb 29.4 pg (27.0-32.0); Mean Platelet Vol. 11.2 fl (6.2-12.0); Platelet Count 166 K/mm3 (150-450); RBC Distribution Width CV 12.2 % (11.6-14.6); RBC Distribution Width SD 38.2 fl (35.1-43.9); Red Blood Count 5.13 M/mm3 (4.6-6.2); White Blood Count 6.5 K/mm3 (4.4-11.0)
[2022-02-28 10:40] LABS: Vitamin D,25 Hydroxy 66.6 ng/mL
[2022-02-28 10:54] LABS: ALB/GLOB Ratio 1.6 RATIO (0.9-2.4); AST(SGOT) 22 U/L (15-37); Alanine Aminotransfer ALT/SGPT 64 U/L (16-61); Albumin, Serum 3.9 g/dL (3.2-5.0); Alkaline Phosphatase 85 U/L (45-117); Anion Gap 10 (5-15); BUN 18 mg/dL (7-18); BUN/Creat Ratio 18.9 RATIO (10-20); Calcium,Total 8.8 mg/dL (8.5-10.1); Chloride 107 mmol/L (98-107); Cholesterol 154 mg/dL (200); Creatinine, Serum 0.95 mg/dL (0.70-1.30); EST Glomerular Filtration Rate 89 mL/min (>60); Est Glom Filt Rate - Afr Amer 108 mL/min (>60); Globulin 2.5 g/dL (2.2-4.2); Glucose 113 mg/dL (74-106); High Density Lipoprotein 31 mg/dL; Potassium 3.8 mmol/L (3.5-5.1); Protein, Total 6.4 g/dL (6.4-8.2); Sodium Level 139 mmol/L (136-145); Thyroid Stim Hormone (TSH) 2.21 uIU/mL (0.358-3.74); Triglycerides 258 mg/dL; Very Low Density Lipoprotein 52 mg/dL (5-40)
== END | disposition home or self-care (01) ==
LOC: MTLAB 07:06
PROVIDERS: PCP Family Medicine; Referring Provider Family Medicine; Visit Provider Family Medicine
DX: I25.10 Atherosclerotic heart disease of native coronary artery without angina pectoris (principal); R79.89 Other specified abnormal findings of blood chemistry
CPT/HCPCS: 36415; 80053; 80061; 82306; 84443; 85027

== ENCOUNTER → 2022-03-08 | Outpatient (CLI) | payer OTHER, SELFPAY ==
[2022-03-08 10:23] LABS: AST(SGOT) 23 U/L (15-37); Alanine Aminotransfer ALT/SGPT 62 U/L (16-61)
== END | disposition home or self-care (01) ==
LOC: MTLAB 07:09
PROVIDERS: PCP Family Medicine; Referring Provider Podiatrist; Visit Provider Podiatrist
DX: B35.1 Tinea unguium (principal)
CPT/HCPCS: 36415; 84450; 84460

== ENCOUNTER 2022-03-26 13:49 | Outpatient (RCR) | payer OTHER, SELFPAY | END 2022-04-03 23:59 | LOC: NS 13:49 | PROVIDERS: PCP Family Medicine; Referring Provider Family Medicine; Visit Provider Family Medicine | DX: Z71.3 Dietary counseling and surveillance (principal); E66.9 Obesity, unspecified; E78.5 Hyperlipidemia, unspecified; Z68.31 Body mass index [BMI] 31.0-31.9, adult | CPT/HCPCS: 97802 ==

== ENCOUNTER 2022-04-16 14:20 | Outpatient (RCR) | payer OTHER, SELFPAY | END 2022-05-03 23:59 | LOC: NS 14:20 | PROVIDERS: PCP Family Medicine; Referring Provider Family Medicine; Visit Provider Family Medicine | DX: Z71.3 Dietary counseling and surveillance (principal); E66.9 Obesity, unspecified; E78.5 Hyperlipidemia, unspecified; Z68.30 Body mass index [BMI] 30.0-30.9, adult | CPT/HCPCS: 97803 ==

== ENCOUNTER 2022-05-14 07:23 | Outpatient (RCR) | payer OTHER, SELFPAY | END 2022-06-03 23:59 | LOC: NS 07:23 | PROVIDERS: PCP Family Medicine; Referring Provider Family Medicine; Visit Provider Family Medicine | DX: Z71.3 Dietary counseling and surveillance (principal); E66.9 Obesity, unspecified; E78.5 Hyperlipidemia, unspecified; Z68.30 Body mass index [BMI] 30.0-30.9, adult | CPT/HCPCS: 97803 ==

== ENCOUNTER → 2022-05-21 | Outpatient (CLI) | payer OTHER, SELFPAY | END | disposition home or self-care (01) | LOC: PAVLAB 08:32 | PROVIDERS: PCP Family Medicine; Referring Provider Surgery; Visit Provider Surgery | DX: R69 Illness, unspecified (principal) ==

== ENCOUNTER → 2022-12-25 | Outpatient (CLI) | payer OTHER, SELFPAY ==
--- NOTE | 2022-12-25 11:10 | RAD_ITS ---
STUDY: X-RAY CHEST REASON FOR EXAM: Male, 52 years old. SOB TECHNIQUE: Frontal and lateral views of the chest. COMPARISON: 11/06/2021 FINDINGS: The lungs are clear and expanded. There is no demonstrated pleural abnormality. Normal size heart. Normal mediastinum and kerry. Normal visualized pulmonary arteries. Normal visualized aortic arch and descending thoracic aorta. Normal visualized thoracic spine. Normal visualized ribs, clavicles, and shoulders. There is no demonstrated abnormality of the visualized soft tissue structures of the upper abdomen. RAD/Chest PA and Lateral IMPRESSION: Normal x-ray examination of the chest. Electronically Signed: Matt Moncada MD at 23:44 EDT ,
[2022-12-25 13:08] LABS: Erythrocyte Sedimentation Rate 1 mm/hr (0-20)
[2022-12-26 15:08] LABS: Angiotensin Convert Enzyme 34 U/L (14-82)
== END | disposition home or self-care (01) ==
LOC: MTLAB 11:08
PROVIDERS: PCP Family Medicine; Referring Provider Internal Medicine Pulmonary Disease; Visit Provider Internal Medicine Pulmonary Disease
DX: R06.02 Shortness of breath (principal)
CPT/HCPCS: 36415; 71046; 82164; 85652; 86140

== ENCOUNTER 2023-01-18 14:15 | Emergency (ER) | payer OTHER, SELFPAY ==
[2023-01-18 14:16] VITALS: BP 129/94; PULSE 75; RESP 18; TEMP 36.4; O2SAT 98; BMI 30.7
--- NOTE | 2023-01-18 16:37 | EX.ED.GENINJ ---
HPI <JOSE ELIAS Cutler - Last Filed: 01/18/23 16:53> History of Present Illness Chief Complaint: Laceration Narrative Narrative: Patient presenting today with a laceration to his left hand near the thumb that he got just prior to arrival while using a clean dull pocket knife to cut off zip ties from a package. He reports his tetanus is up-to-date. He does take Brilinta and baby aspirin. He denies any other injury. PFSH <JOSE ELIAS Cutler - Last Filed: 01/18/23 16:53> [facility] Medical History Asthma Atherosclerotic heart disease of [place] coronary artery without angina pectoris Blepharitis of right upper eyelid Chest pain Depression Difficulty balancing Fatigue Fever Hyperlipidemia Knee pain Lung disease Migraines Presence of stent in coronary artery (~11/28/21) Sarcoidosis Sleep apnea SOB (shortness of breath) Home Medications escitalopram oxalate 10 mg tablet (Lexapro) 20 mg PO DAILY mental health 08/13/18 [History Last Taken Unknown] albuterol 90 mcg/actuation aerosol inhaler 90 mcg inhalation Q4H PRN PRN sob 11/06/21 [History Last Taken Unknown] bupropion HCl 150 mg 24 hr tablet, extended release 150 mg PO DAILY depression 11/28/21 [History Last Taken Unknown] losartan 25 mg tablet tablet PO 12/13/21 [History Last Taken Unknown] atorvastatin 80 mg tablet 40 mg PO QHS #90 tabs 03/19/22 [Rx Last Taken Unknown] Flucelvax Quad 4101-1783 (PF) 60 mcg (15 mcg x 4)/0.5 mL IM syringe (flu vac qs 2021(6 ms up)CD(PF)) 0.5 ml IM ONCE #0.5 mL 05/20/22 [Clinic Last Taken Unknown] aspirin 81 mg tablet,delayed release See Rx Instructions .Route .COMPLEX #90 tabs 12/31/22 [Rx Last Taken Unknown] metoprolol tartrate 25 mg tablet See Rx Instructions .Route .COMPLEX #90 tabs 12/31/22 [Rx Last Taken Unknown] ticagrelor 90 mg tablet (Brilinta) See Rx Instructions .Route .COMPLEX #180 tabs 12/31/22 [Rx Last Taken Unknown] Allergy/AdvReac Type Severity Reaction Status Date / Time MORENO Inhibitors Allergy Other Verified 01/18/23 14:16 Penicillins Allergy Unknown Verified 01/18/23 14:16 Family History Father Asthma Diabetes Heart disease Hypertension Mother No problems noted. Other Cancer Surgical History History of biopsy History of colonoscopy (~03/24/19) Presence of coronary angioplasty implant and graft (~11/07/21) Social History Smoking Status: Never smoker alcohol intake: current alcohol intake frequency: a few times a week Alcohol type: hard liquor substance use type: does not use caffeine: Yes frequency: does not exercise ROS <JOSE ELIAS Cutler - Last Filed: 01/18/23 16:53> ROS ED Constitutional Constitutional ED: Denies chills or fever(s) Cardiovascular Cardiovascular: Denies chest pain Respiratory/Chest Respiratory/Chest: Denies cough or dyspnea Gastrointestinal Gastrointestinal: Denies abdominal pain, nausea or vomiting Musculoskeletal Musculoskeletal: Reports myalgias; Denies arthralgias Integumentary Reports laceration Neurologic Neurologic: Denies weakness Hematologic/Lymphatic Hematologic/Lymphatic: Reports easy bleeding EXAM <JOSE ELIAS Cutler - Last Filed: 01/18/23 16:53> Physical Exam Const Vital Signs: 01/18/23 14:16 Temperature 97.5 F L Temperature Source Temporal Pulse Rate 75 Respiratory Rate 18 Blood Pressure 129/94 H Blood Pressure Mean 105 Pulse Ox 98 Oxygen Delivery Method Room Air Positive well nourished, well developed and no apparent distress General Appearance ED: well developed HEENT Reports normocephalic and head/scalp atraumatic Mouth ED: Yes moist mucous membranes normal Eyes PERRL and EOMs intact bilaterally Neck full ROM and supple Chest Wall inspection of chest normal Resp normal respiratory effort and clear to auscultation bilaterally Cardio regular rate and regular rhythm GI soft to palpation, non-tender, non-distended and no masses Back/Spine normal ROM and normal to inspection Extremity normal to inspection and full ROM Extremity Narrative: 3 cm linear laceration to the thenar eminence of the left hand. Radial pulses 2+ and equal bilaterally, good capillary refill, sensation intact. Full flexion and extension of MCP, PIP, and DIP joints of all fingers in the left hand. Neuro oriented x3, CN's II-XII intact bilaterally, moves all extremities, no focal motor deficits and no sensory deficits noted Sensorium / Orientation: awake and alert Psych mental status grossly normal and thought process normal Skin no rashes or lesions noted and no wounds <Dr. Brijesh Martino DO - Last Filed: 01/18/23 17:32> Physical Exam Const Vital Signs: 01/18/23 14:16 Temperature 97.5 F L Temperature Source Temporal Pulse Rate 75 Respiratory Rate 18 Blood Pressure 129/94 H Blood Pressure Mean 105 Pulse Ox 98 Oxygen Delivery Method Room Air PROC <JOSE ELIAS Cutler - Last Filed: 01/18/23 16:53> Procedures Lacerations Laceration: Length: 1.18 in Depth: Sub Q Shape: Linear Prep: Chlorhexadine Laceration repair: Irrigated, Lidocaine, Skin sutures and Wound explored Irrigated (ml): 50 Number of Sutures/Elizabeth: 4 Suture Information: Ethilon and 5-0 MDM <JOSE ELIAS Cutler - Last Filed: 01/18/23 16:53> [facility] MDM Narrative Medical decision making narrative: Patient presenting today due to a 3 cm linear laceration to the thenar eminence of the left hand. This was copiously irrigated, cleaned with chlorhexidine, lidocaine was infiltrated to the area, and 4 sutures were placed. Bacitracin ointment was applied and the wound was bandaged. He has been given instructions on signs of infection to look out for, he is to have the stitches removed in 7 to 10 days. He has been given return instructions and will be discharged home in stable condition. He is comfortable with plan. <Dr. Brijesh Martino DO - Last Filed: 01/18/23 17:32> [facility] Treatment and Re-Evaluation Narrative: I, Dr Martino, have reviewed the above progress note and course of action in the ER; agree with the above. I have personally seen and evaluated this patient, gone over history and physical, and discussed disposition and treatment plan with the patient. Discharge Plan Triage Chief Complaint: Laceration ED Midlevel Provider: Rosa Isela Carlson ED Provider: Brijesh Martino Dx/Rx/DC Orders Clinical Impression: Laceration Instructions: ED Laceration: All Closures Prescriptions: No Action escitalopram oxalate [Lexapro] 10 mg tablet 20 mg PO DAILY losartan 25 mg tablet PO Label Comments: TAKE 1 TABLET BY [id number] DAILY atorvastatin 80 mg tablet 40 mg PO QHS Qty: 90 3RF Flucelvax Quad (PF) 60 mcg (15 mcg x 4)/0.5 mL syringe 0.5 ml IM ONCE Qty: 0.5 0RF albuterol 90 mcg/actuation Aerosol 90 mcg INHALATION Q4H PRN PRN (Reason: sob) bupropion HCl 150 mg tablet extended release 24 hr 150 mg PO DAILY Label Comments: TAKE 1 TABLET BY MOUTH EVERY DAY IN THE MORNING metoprolol tartrate 25 mg tablet See Rx Instructions .ROUTE .COMPLEX Qty: 90 3RF Dose Instruction: TAKE 1/2 TABLET TWICE A DAY Rx Instructions: TAKE 1/2 TABLET TWICE A DAY Brilinta 90 mg tablet See Rx Instructions .ROUTE .COMPLEX Qty: 180 3RF Dose Instruction: TAKE 1 TABLET TWICE A DAY Rx Instructions: TAKE 1 TABLET TWICE A DAY aspirin 81 mg tablet,delayed release (DR/EC) See Rx Instructions .ROUTE .COMPLEX Qty: 90 3RF Dose Instruction: TAKE 1 TABLET DAILY AT 8AM Rx Instructions: TAKE 1 TABLET DAILY AT 8AM Primary Care Provider: Black York Referrals: Black York MD [Primary Care Provider] - 10 Day for suture removal Activity Restrictions/Additional Instructions: Keep an eye out for signs of infection and return if you notice any increased redness, swelling, purulent discharge, fever. Have stitches removed in 10 days. Disposition Disposition: Home, Self Care Discharge Date/Time: 01/18/23 16:17
== END 2023-01-18 16:17 | disposition home or self-care (01) ==
PROVIDERS: Emergency Provider Emergency Medicine; PCP Family Medicine; Visit Provider Emergency Medicine
DX: S61.412A Laceration without foreign body of left hand, initial encounter (principal); W26.0XXA Contact with knife, initial encounter; Y93.89 Activity, other specified; I25.10 Atherosclerotic heart disease of native coronary artery without angina pectoris; E78.5 Hyperlipidemia, unspecified; Z95.5 Presence of coronary angioplasty implant and graft; Z79.82 Long term (current) use of aspirin; Z79.899 Other long term (current) drug therapy
CPT/HCPCS: 12002; 99282

== ENCOUNTER → 2023-02-11 | Outpatient (CLI) | payer OTHER, SELFPAY ==
[2023-02-11 17:40] LABS: Absolute Lymphocyte Count 1.38 X10^3/uL (0.83-4.51); Absolute Neutrophil Count 4.5 X10^3/uL (2.0-7.7); Basophil# 0.02 X10^3/uL; Basophil% 0.3 % (0-1); Eosinophil# 0.02 X10^3/uL; Eosinophils% 0.3 % (0-5); Hematocrit 42.4 % (40-54); Hemoglobin 14.4 g/dL (13.0-16.5); Lymphocyte # 1.38 X10^3/ul (0.83-4.51); Lymphocyte % 21.3 % (19-41); Mean Corpuscular Hgb 29.4 pg (27.0-32.0); Mean Corpuscular Volume 86.7 fL (80-94); Mean Platelet Vol. 11.6 fl (6.2-12.0); Monocyte# 0.54 X10^3/uL; Monocyte% 8.3 % (0-10); NRBC Flagged by Analyzer 0 % (0-5); Neutrophil % 69.5 % (47-70); Platelet Count 171 K/mm3 (150-450); RBC Distribution Width CV 12.4 % (11.6-14.6); RBC Distribution Width SD 39.2 fl (35.1-43.9); Red Blood Count 4.89 M/mm3 (4.6-6.2); White Blood Count 6.5 K/mm3 (4.4-11.0)
[2023-02-11 17:52] LABS: Anion Gap 5 (5-15); BUN 17 mg/dL (7-18); BUN/Creat Ratio 19.8 RATIO (10-20); Calcium,Total 8.9 mg/dL (8.5-10.1); Chloride 108 mmol/L (98-107); Creatinine, Serum 0.86 mg/dL (0.70-1.30); EST Glomerular Filtration Rate 100 mL/min (>60); Est Glom Filt Rate - Afr Amer 121 mL/min (>60); Glucose 120 mg/dL (74-106); Potassium 4.2 mmol/L (3.5-5.1); Sodium Level 140 mmol/L (136-145)
[2023-02-11 17:59] LABS: Erythrocyte Sedimentation Rate 2 mm/hr (0-20)
== END | disposition home or self-care (01) ==
LOC: MFPLAB 15:20
PROVIDERS: PCP Family Medicine; Visit Provider Family Medicine
DX: R59.9 Enlarged lymph nodes, unspecified (principal); D86.9 Sarcoidosis, unspecified
CPT/HCPCS: 36415; 80048; 85025; 85652